=== PATIENT | female | born 1960 | race Caucasian/White ===

== ENCOUNTER 2018-11-23 08:00 | Outpatient (RCR) | payer MEDICAID, SELFPAY ==
--- NOTE | 2018-11-23 15:05 | HP.OTFCE_ITS ---
HP OT Functional Capacity Eval - Task Lift Floor (Occasional 1-33% of Day): 15 Floor (Frequent 34-66% of Day): 5 lbs Floor (Constant 67-100% of Day): negligble Floor PDL: Sedentary-Light Knee (Occasional 1-33% of Day): 10 lbs Knee (Frequent 34-66% of Day): 5 lbs Knee (Constant 67-100% of Day): negligible Knee PDL: Sedentary Waist (Occasional 1-33% of Day): 15 lbs Waist (Frequent 34-66% of Day): 5 lbs Waist (Constant 67-100% of Day): negligible Waist PDL: Sedentary Shoulder (Occasional 1-33% of Day): 10 Shoulder (Frequent 34-66% of Day): negligible Shoulder (Constant 67-100% of Day): negligible Shoulder PDL: Sedentary Overhead (Occasional 1-33% of Day): 5 lbs Overhead (Frequent 34-66% of Day): negligible Overhead (Constant 67-100% of Day): negligible Overhead PDL: Sedentary Comments: Discrepancies noted between dynamometer testing for upper body and lower body strengthening and actual material handling performance. For example, she was able to complete a resistance of bilateral upper extremities with use of dynamometer for proximal shoulder flexion at R 9.2 lbs, and L 11.6 lbs but was unable to complete 5-15 lbs of material handling tasks without significant compensations. Poor body mechanics observed. - Work Activity/Posture Bending: Frequent Ability (34-66% of day) Squatting: Occasional Ability (1-33% of day) Kneeling: Occasional Ability (1-33% of day) Reaching out: Frequent Ability (34-66% of day) Reaching up: Frequent Ability (34-66% of day) Sitting: Frequent Ability (34-66% of day) Walking: Frequent Ability (34-66% of day) Standing: Frequent Ability (34-66% of day) - Reference Duration Sedentary Sedentary Light Light Light Medium Medium Medium Heavy Very Heavy Heavy Occasional (0-33% of day) Frequent (34-66% of day) Constant (67-100% of day) 10 # Negligible Negligible 15 # 8 # Negligible 20 # 10# Negli. 35 # 18 # 7 # 50 # 25 # 10 # 75 # 100 # >100 # 38 # 50 # >50 # 15 # 20 # >20 # - Patient Information Height: 1.61 m Weight:: 106.685 kg Hand Dominance: L hand BP (Medication Use/Usual Values per pt report): Yes - Medical History Medical History Including Restrictions: No medical resitrictions by doctor or provided by pateint. - Diagnoses Diagnoses: Current: Lumbar facet arthropathy and spondylolisthesis of lumbar. PMHx: HTN, atrial fabulation, hypoglycemia, Lumbar facet arthropathy and spondylolisthesis of lumbar (mild), cervical disc syndrome, disc bulge at T12- L1, L2-L3, L3-L4, L4-5, L5-S1. and chronic low back pain. - Symptoms Symptoms: Leelee reports numbness and tingling on left side of body. She reports numbness and tingling in left arm and hand as well as left leg and foot. She re ports daily pain is variable but at times is 'shooting' and 'buring' which typically occurs down her leg from lumabr related pain. - Pain Pain: Noted pain at arrival was 2-3/10 with use of functional pain scale. She noted that she did not take pain medications prior to evaluation as instructed. She did not need pain medications during day one but did bring and take one pill after bending tasks on day 2 evaluation. She noted she regularly uses moist heat and icy hot, Benjay, or Aspercream. She noted pain originates at hip area and follows L3-S1 dermatomes down leg with symptoms of numbness and tingling. She trialed physical therapy per patient report at [facility] but did two sessions and had increase in pain which left her unable to complete any further therapy and per patient report doctor gave her permission to discontinue. She has started pain management program with Dr. Lozano and received first injection on November 03 in in cervical spine C4-C7. She noted that she has further follow up for lumbar injections sometime in December per Pt. report. She is having symptoms of left hand and arm numbness that she reports have been ongoing for years. She noted she has done therapy previously for cervical spine when L UE became ?bad?. She noted it did seem like therapy helped but didn?t take it away. She further noted ?it seemed to take the edge off?. She noted she has3x4 00 mg of gabapentin daily. Pain Assessment: Destiney Pain Questionnaire is a self-report pain assessment to determine a patient?s accurate psychodynamics for accurate pain rating. A score of 30 or high indicates poor psychodynamics and the greater probability of decreased accuracy with accurate pain reporting. Day 1: Pre- Destiney: 29. Post Destiney: 11. Discrepancies noted between pre and post Destiney pain assessment. Indicating that pain as decreased post day 1 of FCE evaluation although verbal report had increased and no mechanical deficits noted. Day 2: Pre- Destiney: 14. Post Destiney: 14. Fear Avoidance Questionnaire (FAQ) is a client self-report assessment for 18-64+ that has shown to be reliable and valid for determining increased fear with moveme nts. A score of 96 or higher indicates increased fear avoidance behaviors. Day 1: FAQ Pre-testin. -fear avoidance beliefs about work: 42. - fear avoidance beliefs about physical activity: 21. FAQ Post testin. -fear avoidance beliefs about work: 42. - fear avoidance beliefs about physical activity: 24. Discrepancies noted between pre and post with increased fear avoidance behaviors. When compared to Destiney further discrepancies noted as she lists decreased pain but increased fear of pain. Inconsistent with pain reporting. Day 2: FAQ Pre-testin. -fear avoidance beliefs about work: 36. - fear avoidance beliefs about physical activity: 24. FAQ Post testin. -fear avoidance beliefs about work: 36. - fear avoidance beliefs about physical activity: 24. Oswestry Neck and Low back questionnaire is a self- report assessment in which patients report their perceived level of disability based on their perceived pain. Day 1. Oswestry : 27/45=60%. Day 2. 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 She recently quit job, 10/08/18, and that was her last day. She reports she did this due to pain. No acknowledgement of being moved to light duty at work by doctor or need to terminate occupation. She noted she has already went to file for disability. 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 She noted she had stopped completing more of heavy lifting tasks due to irregular heartbeat. - Behavioral Behavioral: At arriving day, It took me two doses of medication and sitting with heating pad on my neck and back all day prior to my pain decreasing. She completed very little movement of day 1 testing. Day one testing is background, range of motion measurement, strength testing, and balance assessments. She failed to report what she did at home but noted ?she didn?t do much of anything?. Discrepancies noted between day 1 testing with Destiney and Fear Avoidance Questionnaires noting increased inconsistencies in pain reporting. She was participative in tasks, but increased fear appeared to be observed with client stating ?Oh! That?s really going to make me hurt? and ?I really don?t think I can go back to work with all this pain?. She further noted she recently moved. She did hire house mover helper and sister has been helping unpack but she is also completing unpacking tasks. She is starting physical thrapy again at [facility] for cervical related diagnoses. - ADLS ADLS: Leelee noted that she recently sold house due to health-related issues. She explained she recently moved and is unpacking in the home she is currently renting house. She reports in rental she has three steps to enter through garage. Once in home she reports she has first floor set up. She reports that she has second floor she does not access as bedroom is on first floor. She reports she does have basement which she accesses one time weekly for laundry. She reports 10 stairs to complete laundry and notes she throws laundry down stairs and then leaves it down there until item needed. She is still completing stairs as needed. Notes still unpacking and that her sister, Marta, helps with cooking and some cleaning. Leelee reports she can cook if needed, is still completing all self-care tasks, able to complete tub transfer and showering daily, as well as completing driving (as able). She noted when driving legs do tend go numb and she completes driving within [facility]. - Physical Examination Physical Examination: The purpose of this functional capacity evaluation (FCE) was to determine Leelee's physical ability. This was completed as a two-day and approximately of a total of four-hour assessment. The first day was background information and provocative testing. Second day completed repetitive movement tasks and lifting tasks to determine her physical and material handling abilities. This FCE was performed in order to form setter helper in the determination of Leelee's eligibility to get social security disability. Aerobic limiting factor: 85% of max adjust HR= (220-age)*.85= 138 bpm. Calculated max weight: 60% of weight= 141.12 lbs. Beginning Day 1: Heart rate: 75 bpm. Blood Pressure: 167/99 mmHg (automatic Omron); 158/95 mmHg with forearm-based Balance cuff; 131/90 mmHg manually. ?Leelee noted with not taking pain medication she also did not take blood pressure medications. Blood pressure was monitored throughout session to ensure safety. Beginning Day 2: Heart rate: 70 bpm. Blood pressure: 130/80 mmHg ROM: Completed spine range of motion and measurements are as follows: Cervical spine with goniometer: - flexion: 0-21. - extnesion: 0-13. - rotation: L 0- 20. R 0-29. - Lateral leaning: L 0-24. R 0-13. Lumbar Spine: - flexion: 0- 22. - extension: 0-17. - lateral flexion: R: 0-20. L: 0-14. Inclinometer: Flexion: L1: 22. L 2: 20 Strength: Manual muscle testing completed of the following to determine patient strength needed to complete job ? related tasks: Upper extremity: Shoulder: - Shoulder flexion: R 4 5, L 4-/5. oDynamometer: R 9.2 , L 11.6 lbs. -Shoulder extension: R 4 5, L 4-/5. oDynamometer: R 10.6 , L 9.4 lbs. -Shoulder Adduction: R 4 5, L 4-/5. oDynamometer: R 9.8 , L 12.8 lbs. -Shoulder Abduction: R 4 5, L 4-/5. oDynamometer: R 10.9 , L 16.6 lbs. -Internal Rotation: R 4 5, L 4-/5. oDynamometer: R 12.5 , L 12.5 lbs. -External Rotation: R 4 5, L 4-/5. oDynamometer: R 7.2 , L 9 lbs. Elbow: -Elbow Flexion: R 4 5, L 4-/5. oDynamometer: R 13.9 , L 11.7 lbs. -Elbow Extension: R 4 5, L 4-/5. oDynamometer: R 11.9 , L 9.2 lbs. Wrist: -Wrist Flexion: R 4 5, L 4-/5. -Wrist extension: R 4 5, L 4-/5. noted crepitus in right shoulder with movements. Lower Extremity: Lower Body: Hip flexion: R 4/5 , L 4+/5. oDynamometer: R 12.4 , L 12.8 lbs. Hip abduction: R 4/5 , L 4+/5. oDynamometer: R 11.4 , L 9.8 lbs. Hip Adduction: R 4/5 , L 4+/5. oDynamom eter: R 13 , L 9.2 lbs. Knee extension: R 4/5 , L 4+/5. oDynamometer: R 18.6 , L 14 lbs. Knee flexion: R 4/5 , L 4/5. oDynamometer: R 10.6 , L 10.5 lbs. Ankle dorsiflexion: R 4/5 , L 4/5. oDynamometer: R 13.3 , L 13 lbs. Ankle plantarflexion: R 4/5 , L 4/5. oDynamometer: R 8.6 , L 15.3 lbs. Breaks easily with resistance. Inconsistencies with manual testing as well as dynamometer testing noted as strength of shoulder flexion (deltoid from proximal location) alone was R at 9.2 lbs and L 11.6 lbs but she was unable to lift more than 5 lbs with poor body mechanics. Cues needed to bend elbows to complete task. 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 Auto Body Instructor Strength Average: 41.33 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 Auto Body Instructor Strength Percentile: 62nd Left Vocational Auto Body Instructor Strength Average: 36.66 Left Vocational Auto Body Instructor Strength Percentile: 55th Right Lateral Pinch Average: 11.00 Right Lateral Pinch Percentile: above 25th but below 50th Left Lateral Pinch Average: 11.00 Left Lateral Pinch Percentile: 50th Right Tripod Pinch Average: 6.33 Right Tripod Pinch Percentile: 10th Left Tripod Pinch Average: 8.00 Left Tripod Pinch Percentile: 25th Comments: Five span Vocational Auto Body Instructor Testing: Position 1: R 27 , L 29. Position 2: R 38 ,L 42. Position 3: R 35 , L 41. Position 4: R 35 , L 51. Position 5: R 45 , L 65. Inconsisentencies noted with spanish linguist testing patient shoud show highest performance between 2nd and 3rd positions. Rapid spanish linguist exchange: R 80 ,L 81. R 45, L 64. R 52, L 50. Inconsisentcies noted with spanish linguist testing. Sensation: Sensory Testing: Sensation testing completed on bilateral hands and feet with monofilament touch test. A score of normal on touch test is 2.83 and within normal range with just some discrepancies for light touch is between 3.22-3.61. The higher the number in more complications related to patient?s ability to perceive touch related sensory stimuli. R hand: 2nd 3.22 , 3rd 2.83 , 4th 3.22 , 5th 3.22 , thumb 2.83. L hand: 2nd 3.84 , 3rd 3.61 , 4th 3.22 , 5th 2.83 , thumb 3.22. R foot: Great Toe 3.84 , 2nd 3.22 , 3rd 3.84 , 4th , 5th 3.61. Dorsum. Great Toe 3.61 , 2nd 3.22 , 3rd ,4th 3.22 , 5th 3.61. L foot: Volar. Great Toe 4.56 , 2nd 4.17 , 3rd 3.22 , 4th 3.61 , 5th 3.61. Dorsum. Great Toe 3.84 , 2nd 3,61, 3rd 3.84, 4th 4.31 , 5th 4.08 Fine Motor: Fine motor: Completed the Purdue Pegboard test to further determine the patient?s ability to complete 20-3 step tasks, assess fine motor control and general dexterity needed to complete assembly like work. She is left hand dominant. The results are as follows: Leelee is left hand dominant. Increased symptoms of numbness and tingling on left upper extremity noted by patient. Pt. reports pain at 4/10 with use of functional pain scale. She completed task in standing as requested as need to help manage pain. Completed at table height at 36 inches. Right Hand: 13. -Percentile: 5th. Left Hand: 9. -Percentile: below 1st. Both Hands: 8. -Percentile: below 1st. R+ L+ Both: 30. - percentile: below 1st. Assembly: 5. -percentile: below 1st Balance: Functional reach test is used to determine static balance in patients. A score of 15 is normal and less than 10 increases risk of falling. A score of 6 or less significantly increases a patient?s risk of falling. Bagley 1: 12 inches. Bagley 2: 11.5 inches. Bagley 3: 11.5 inches. Average: 11.5 inches. Blood Pressure: 141/96 mmHg with wrist Omron cuff. Heart rate: 88 bpm. Functional Gait Assessment (FGA) is a dynamic balance test to determine vestibular functioning and general dynamic balance ability of patient 18-65+. This assessment can be used with clients of various backgrounds to determine functional dynamic balance needed to complete every day work related tasks. 1.Gait Level Surface:2. 2.Change in Gait Speed: 1. 3.Gait with horizontal head turns:1. 4.Gait with vertical head turns:1. 5.Gait and pivot turn:3. 6.Step over obstacle: 1. 7.Gait with narrow base of support: 2. 8.Gait with eyes closed: 1. 9.Ambulating Backwards: 1. 10.Steps: 1. Total Score: 14/maximum score 30. Significantly below peer groupbut does have past medical history of positional vertigo per patient report. She reports recieving treatment multiple times in outpatient physical therapy. - Non Material Handling Activities Bending: Heart rate startin bpm. 3x, 10x in 70 seconds; Patient noted muscle spasm and needed 30 seconds standing break prior to continuing with 10x faster; and then , 10 x faster in 27 seconds. Completed with equal weightbearing into bilateral lower extremities. Increase in thoracic spine flexion and noted as compensation. She was able to complete full bend with increase in speed for faster set. Fair body mechanics observed as some decreased alignment of spine noted. No increase in heart rate observed to support increase in pain as report by client. Heart rate: 92 bpm. Shane. Pain 5/10 Squatting: Heart rate start: 92 bpm. 3x, 10 x in 44 seconds, 5x faster 20 seconds. Completed 25% of full squat with equal weightbearing noted of bilateral lower extremities. She noted increase in pain in left knee but no increase in heart rate or pain behaviors observed. Fair body mechanics. Heart rate: 88 bpm. Shane. Pain: 5 Kneeling: Heart rate: 91 bpm. 3x at 25% of full kneel. Increased fear noted by patient of completing position. ?I don?t want my pain over a 5/10 pain?. Pain at 5/10. Needed seated break for 4 minutes at completion. Mechanical compensations observed of need for external support of mat table and left hand to thigh. Would avoid completing this movement regularly due to increased mechanical changes observed. Increase in heart rate noted. Slight grimace observed with patient completion of movements. Increase in heart rate is also to be due to exertion and fear of increasing pain that solely relatively to movement. Heart rate 105 bpm. Shane. Pain: 5/10 Reaching out/up: Beginning heart rate: 79 bpm. Completed from standing position: Reaching out: 3x, 10x in 20 seconds, 10x faster in 23s. Completed with equal weightbearing into bilateral lower extremities. She completed with good body mechanics and spinal alignment. No mechanical compensations noted. She did not muscle fatigue but no increase in pain. Pain: 5/10 in lumbar and left leg. From standing position: Reaching up: Heart rate: 84 bpm. 3x, 10x in 27 seconds, 10x faster in about 25 seconds. Completed with equal weightbearing into bilateral lower extremities. She completed with good body mechanics and spinal alignment. No mechanical change but some compensations of increased ocular tracking to ceiling causing increased cervical extension. She did not muscle fatigue but no increase in pain. Pain: 5/10. Heart rate: 91 bpm. Heart rate: 78 bpm after 10 second standing break. Walking: Blood Pressure: 135/84 mmHg. Heart rate: 80 bpm. Completed walking 1,120 feet around facility no including the additional amount of walking from physical therapy gym-based area to the occupational therapy area as well as from parking lot to designated therapy spots. She completed without use of assistive device and was able to complete 10 minutes of walking with a onetime standing break of 30 seconds. Exhibited antalgic gait to bilateral sides. No shortness of breath observed. Increase in mechanical changes observed with task progression. Needed to take pain medication after task. Increase in heart rate observed but this is likely due to increase in exertion. Heart rate: 96 bpm. Blood pressure: 139/90 mmHg Standing: Able to complete static and dynamic standing tasks for 35 minutes. She was able to complete equal weightbearing into bilateral lower extremity weight bearing as needed with weight shift as appropriate. Pain consistent at 5/10 pain. Completed an additional twenty minutes of standing later in session. Sitting: Completed 30 minutes of sitting tasks with weight shift as needed to complete tasks. She is able to complete frequent sitting related tasks. Climbing Stairs: Blood pressure prior to stairs: 143/93 mmHg. Heart rate prior to stairs: 94 bpm. Able to complete one set of 10 stairs with need for two step gait with ascension. She additionally needed to use left sided handrail with descension. Antalgic gait noted. She is able to complete 10 stairs with in home to basement. Post blood pressure: 137/94 mmHg. Heart rate: 97 bpm - Dynamic Occasional Lifting Capacity Floor Lift: Occasional: 15 lbs. Frequent: 5 lbs. Poor body mechanics. Lifting with narrow base of support and straight arms. Pain behaviors noted of wincing and grimace and need to completed massage back during standing break prior to continuing. Mechanical deficits noted of increased thoracic spine flexion and cervical extension. Increased compensations noted to complete task. Partici pative but noted all tasks very 'heavy'. Dynamometer testing completed shows adequate ability to complete listing tasks with allotted amount. Some discrepancies noted. Shane. Pain: 5/10 Knee Lift: Heart rate: 87 bpm. Occasional: 10 lbs. Frequent: 5 lbs. . Need for seated break at completion of task for 4-minute seated break prior to continuing. Completed with poor body mechanics. Increased compensations noted to complete task. Participative but noted all tasks very 'heavy'. Heart rate: 94 bpm. Shane Waist Lift: Starting heart rate 75 bpm. Occasional: 15 lbs. Frequent: 5 lbs. Poor body mechanics noted of decreased spinal alignment. Mechanical changes observed with twist movement at thoracic spine to place box to table top. C ompleted with equal weightbearing int o lower extremity. Some pain behaviors observed of facial expressions made but no changes observed in heart rate to be abnormal. Heart rate: 80 bpm. Shane. Pain: 5 /10 Shoulder Lift: Beginning heart rate: 81 bpm. Occasional: 10 lbs. Frequent: Negligible. Completed with poor body mechanics. Verbal cues needed to complete bending upper extremity to manipulate tasks. She attempted straight arm and minimal bend in knees. Completed with equal weightbearing into bilateral lower extremity. Some facial grimace noted but no increase in pain. She noted ?I don?t plan on letting my pain get above a 5/10?. She reports having recently moved and used movers to completed tasks but is still unpacking with sister. Heart rate: 92 bpm. Shane. Pain: 5 /10 Overhead Lift: Heart rate: 80 bpm. Occasional: 5 lbs. Frequent: negligible. Completed with poor body mechanics and increased compensations noted through mechanical changes. Discrepancies noted between performance and dynamometer testing and inconsistencies observed. Heart rate: 97 bpm. Shane. Pain: 5 /10 Carrying: Heart rate: 97 bpm. 10 lbs for 20 feet with decreased speed and antalgic gait. Mechanical deficits noted. Inconsistencies noted with pain and performance. No pain behaviors observed and no increase in heart rate observed. Shane: Heart rate: 94 bpm Comments: Ending diagnostics are as follows: Blood pressure: 129/92. Heartrate: 74 bpm
--- NOTE | 2018-11-23 15:05 | HP.OTFCE.D ---
FCE D/C Summary - Discharge CALI GUERRA was seen for a one time visit for an FCE on 11/22/18 and is discharged.
--- NOTE | 2018-11-25 12:24 | HP.OTFCE_ITS ---
HP OT Functional Capacity Eval - Task Lift Floor (Occasional 1-33% of Day): 15 Floor (Frequent 34-66% of Day): 5 lbs Floor (Constant 67-100% of Day): negligble Floor PDL: Sedentary-Light Knee (Occasional 1-33% of Day): 10 lbs Knee (Frequent 34-66% of Day): 5 lbs Knee (Constant 67-100% of Day): negligible Knee PDL: Sedentary Waist (Occasional 1-33% of Day): 15 lbs Waist (Frequent 34-66% of Day): 5 lbs Waist (Constant 67-100% of Day): negligible Waist PDL: Sedentary Shoulder (Occasional 1-33% of Day): 10 Shoulder (Frequent 34-66% of Day): negligible Shoulder (Constant 67-100% of Day): negligible Shoulder PDL: Sedentary Overhead (Occasional 1-33% of Day): 5 lbs Overhead (Frequent 34-66% of Day): negligible Overhead (Constant 67-100% of Day): negligible Overhead PDL: Sedentary Comments: Discrepancies noted between dynamometer testing for upper body and lower body strength testing and actual material handling performance. For example, she was able to complete a resistance of bilateral upper extremities with use of dynamometer for proximal shoulder flexion at R 9.2 lbs, and L 11.6 lbs but was unable to complete 5-15 lbs of material handling tasks without significant compensations and poor body mechanics observed. - Work Activity/Posture Bending: Frequent Ability (34-66% of day) Squatting: Occasional Ability (1-33% of day) Kneeling: Occasional Ability (1-33% of day) Reaching out: Frequent Ability (34-66% of day) Reaching up: Frequent Ability (34-66% of day) Sitting: Frequent Ability (34-66% of day) Walking: Frequent Ability (34-66% of day) Standing: Frequent Ability (34-66% of day) - Reference Duration Sedentary Sedentary Light Light Light Medium Medium Medium Heavy Very Heavy Heavy Occasional (0-33% of day) Frequent (34-66% of day) Constant (67-100% of day) 10 # Negligible Negligible 15 # 8 # Negligible 20 # 10# Negli. 35 # 18 # 7 # 50 # 25 # 10 # 75 # 100 # >100 # 38 # 50 # >50 # 15 # 20 # >20 # - Patient Information Height: 1.61 m Weight:: 106.685 kg Hand Dominance: L hand BP (Medication Use/Usual Values per pt report): Yes - Medical History Medical History Including Restrictions: No medical resitrictions by doctor or provided by pateint. - Diagnoses Diagnoses: Current: Lumbar facet arthropathy and spondylolisthesis of lumbar. PMHx: HTN, atrial fabulation, hypoglycemia, Lumbar facet arthropathy and spondylolisthesis of lumbar (mild), cervical disc syndrome, disc bulge at T12- L1, L2-L3, L3-L4, L4-5, L5-S1. and chronic low back pain. - Symptoms Symptoms: Leelee reports numbness and tingling on left side of body. She reports numbness and tingling in left arm and hand as well as left leg and foot. Leelee reports daily pain is variable but at times is 'shooting' and 'burning' which typically occurs down her leg from lumbar related pain. - Pain Pain: Noted pain at arrival was 2-3/10 with use of functional pain scale. She noted that she did not take pain medications prior to evaluation as instructed. She did not need pain medications during day one but did bring and take one pill after bending tasks on day 2 evaluation. She noted she regularly uses moist heat and icy hot, Benjay, or Aspercream. She noted pain originates at hip area and follows L3-S1 dermatomes down leg with symptoms of numbness and tingling. She trialed physical therapy per patient report at [facility] but did two sessions and had increase in pain which left her unable to complete any further therapy and per patient report doctor gave her permission to discontinue. She has started pain management program with Dr. Lozano and received first injection on November 03 in in cervical spine C4-C7. She noted that she has further follow up for lumbar injections sometime in December per Pt. report. She is having symptoms of left hand and arm numbness that she reports have been on going for years. She noted she has done therapy previously for cervical spine when L UE became ?bad?. She noted it did seem like therapy helped but didn?t take it away. She further noted ?it seemed to take the edge off?. She noted she has3x4 00 mg of gabapentin daily. Pain Assessment: Destiney Pain Questionnaire is a self-report pain assessment to determine a patient?s accurate psychodynamics for accurate pain rating. A score of 30 or high indicates poor psychodynamics and the greater probability of decreased accuracy with accurate pain reporting. Day 1: Pre- Destiney: 29. Post Destiney: 11. Discrepancies and inconsistencies noted between pre and post Destiney pain assessment. Results of Destiney report indicated Leelee?s self report of pain had decreased post day 1 of FCE evaluation although verbal report had increased, and no mechanical deficits noted. Day 2: Pre- Destiney: 14. Post Destiney: 14. Fear Avoidance Questionnaire (FAQ) is a client self-report assessment for 18-64+ that has shown to be reliable and valid for determining increased fear with movements. A score of 96 or higher indicates increased fear avoidance behaviors. Day 1: FAQ Pre- testin. -fear avoidance beliefs about work: 42. - fear avoidance beliefs about physical activity: 21. FAQ Post testin. -fear avoidance beliefs about work: 42. - fear avoidance beliefs about physical activity: 24. Discrepancies noted between pre and post with increased fear avoidance behaviors. When compared to Destiney further discrepancies noted as she lists decreased pain but increased fear of pain. Inconsistent with pain reporting. Day 2: FAQ Pre-testin. -fear avoidance beliefs about work: 36. - fear avoidance beliefs about physical activity: 24. FAQ Post testin. -fear avoidance beliefs about work: 36. - fear avoidance beliefs about physical activity: 24. Oswestry Neck and Low back questionnaire is a self-report assessment in which patients report their perceived level of disability based on their perceived pain. Day 1. Oswestry : 27/45=60%. Day 2. 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 She recently quit job, 10/08/18, and that was her last day. She reports she did this due to pain. No acknowledgement of being moved to light duty at work by doctor or need to terminate occupation. She noted she has already went to file for disability. 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 She noted she had st opped completing more of heavy lifting tasks due to irregular heartbeat. - Behavioral Behavioral: At arriving day, It took me two doses of medication and sitting with heating pad on my neck and back all day prior to my pain decreasing. She completed very little movement of day 1 testing. Day one testing is background, range of motion measurement, strength testing, and balance assessments. She failed to report what she did at home but noted ?she didn?t do much of anything?. Discrepancies noted between day 1 testing with Destiney and Fear Avoidance Questionnaires noting increased inconsistencies in pain reporting. She was participative in tasks, but increased fear appeared to be observed with client stating ?Oh! That?s really going to make me hurt? and ?I really don?t think I can go back to work with all this pain?. She further noted she recently moved. She did hire movers but she reports that she and her sister have been unpacking new home. Reports needing to move due to expensive of medical bills while not working and difficulty upkeeping yard. She is starting physical thrapy again at [facility] for cervical related diagnoses. - ADLS ADLS: Leelee noted that she recently sold house due to health-related issues. She explained she recently moved and is unpacking in the home she is currently renting house. She reports in rental she has three steps to enter through garage. Once in home she reports she has first floor set up. She reports that she has second floor she does not access as bedroom is on first floor. She reports she does have basement which she accesses one time weekly for laundry. She reports 10 stairs to complete laundry and notes she throws laundry down stairs and then leaves it down there until item needed. She is still completing stairs as needed. Notes still unpacking and that her sister, Marta, helps with cooking and some cleaning. Leelee reports she can cook if needed, is still completing all self-care tasks, able to complete tub transfer and showering daily, as well as completing driving (as able). She noted when driving legs do tend go numb and she completes driving within [facility]. - Physical Examination Physical Examination: The purpose of this functional capacity evaluation (FCE) was to determine Leelee's physical ability. This was completed as a two-day evaluation, with completion of two hours each day. The first day was background information and provocative testing. Second day Leelee completed repetitive movement tasks and lifting tasks to determine her physical performance and material handling abilities. This FCE was performed in order to form builder helper in the determination of Leelee's eligibility to get social security disability. Inconsistencies noted throughout evaluation and been examined in the designated areas. Aerobic limiting factor: 85% of max adjust HR= (220-age)*.85= 138 bpm. Calculated max weight: 60% of weight= 141.12 lbs. Beginning Day 1: Heart rate: 75 bpm. Blood Pressure: 167/99 mmHg (automatic Omron); 158/95 mmHg with forearm-based Balance cuff; 131/90 mmHg manually. ?Leelee noted with not taking pain medication she also did not take blood pressure medications. Blood pressure was monitored throughout session to ensure safety. Beginning Day 2: Heart rate: 70 bpm. Blood pressure: 130/80 mmHg ROM: Completed spine range of motion and measurements are as follows: Cervical spine with goniometer: - flexion: 0-21. - extnesion: 0-13. - rotation: L 0- 20. R 0-29. - Lateral leaning: L 0-24. R 0-13. Lumbar Spine: - flexion: 0- 22. - extension: 0-17. - lateral flexion: R: 0-20. L: 0-14. Inclinometer: Flexion: L1: 22. L 2: 20 Strength: Manual muscle testing completed of the following to determine patient strength needed to complete job ? related tasks: All dynamometer testing completed at promxial testing or short axis sites. Upper extremity: Shoulder: -Shoulder flexion: R 4 5, L 4-/5. oDynamometer: R 9.2 , L 11.6 lbs. -Shoulder extension: R 4 5, L 4-/5. oDynamometer: R 10.6 , L 9.4 lbs. -Shoulder Adduction: R 4 5, L 4-/5. oDynamometer: R 9.8 , L 12.8 lbs. -Shoulder Abduction: R 4 5, L 4-/5. oDynamometer: R 10.9 , L 16.6 lbs. -Internal Rotation: R 4 5, L 4-/5. oDynamometer: R 12.5 , L 12.5 lbs. -External Rotation: R 4 5, L 4-/5. oDynamometer: R 7.2 , L 9 lbs. Elbow: -Elbow Flexion: R 4 5, L 4-/5. oDynamometer: R 13.9 , L 11.7 lbs. -Elbow Extension: R 4 5, L 4-/5. oDynamometer: R 11.9 , L 9.2 lbs. Wrist: -Wrist Flexion: R 4 5, L 4-/5. -Wrist extension: R 4 5, L 4-/5. noted crepitus in right shoulder with movements. Lower Extremity: Lower Body: Hip flexion: R 4/5 , L 4+/5. oDynamometer: R 12.4 , L 12.8 lbs. Hip abduction: R 4/5 , L 4+/5. oDynamometer: R 11.4 , L 9.8 lbs. Hip Adduction: R 4/5 , L 4+/5. oDynamometer: R 13 , L 9.2 lbs. Knee extension: R 4/5 , L 4+/5. oDynamometer: R 18.6 , L 14 lbs. Knee flexion: R 4/5 , L 4/5. oDynamometer: R 10.6 , L 10.5 lbs. Ankle dorsiflexion: R 4/5 , L 4/5. oDynamometer: R 13.3 , L 13 lbs. Ankle plantarflexion: R 4/5 , L 4/5. oDynamometer: R 8.6 , L 15.3 lbs. Breaks easily with resistance. Inconsistencies with manual testing as well as dynamometer testing noted as strength of shoulder flexion (deltoid from proximal location) alone was R at 9.2 lbs and L 11.6 lbs but she was unable to lift more than 5 lbs with poor body mechanics. Cues needed to bend elbows to complete task. Right Lift Operator Strength Average: 41.33 Right Lift Operator Strength Percentile: 62nd Left Lift Operator Strength Average: 36.66 Left Lift Operator Strength Percentile: 55th Right Lateral Pinch Average: 11.00 Right Lateral Pinch Percentile: above 25th but below 50th Left Lateral Pinch Average: 11.00 Left Lateral Pinch Percentile: 50th Right Tripod Pinch Average: 6.33 Right Tripod Pinch Percentile: 10th Left Tripod Pinch Average: 8.00 Left Tripod Pinch Percentile: 25th Comments: Five span Lift Operator Testing: Position 1: R 27 , L 29. Position 2: R 38 ,L 42. Position 3: R 35 , L 41. Position 4: R 35 , L 51. Position 5: R 45 , L 65. Coefficient of variation: R .18 or 18%, L 0.29 or 29%. Coefficient of variation above 15% is and inconsistent test. Inconsistencies noted with utility division project manager testing patient should show highest performance between 2nd and 3rd positions as this is power grasp. She shows increased utility division project manager in position 5 which is a hook grasp and weaker grasp to position 2 and 3. Rapid utility division project manager exchange: R 80 ,L 81. R 45, L 64. R 52, L 50. Coefficient of variation: R 31 %, L 23 %. Coefficient of variation above 15% is and inconsistent test. Inconsistencies noted with utility division project manager testing. Sensation: Sensory Testing: Sensation testing completed on bilateral hands and feet with monofilament touch test. A score of normal on touch test is 2.83 and within normal range with just some discrepancies for light touch is between 3.22-3.61. The higher the number in more complications related to patient?s ab ility to perceive touch related sensory stimuli. R hand: 2nd 3.22 , 3rd 2.83 , 4th 3.22 , 5th 3.22 , thumb 2.83. L hand: 2nd 3.84 , 3rd 3.61 , 4th 3.22 , 5th 2.83 , thumb 3.22. R foot: Great Toe 3.84 , 2nd 3.22 , 3rd 3.84 , 4th , 5th 3.61. Dorsum. Great Toe 3.61 , 2nd 3.22 , 3rd ,4th 3.22 , 5th 3.61. L foot: Volar. Great Toe 4.56 , 2nd 4.17 , 3rd 3.22 , 4th 3.61 , 5th 3.61. Dorsum. Great Toe 3.84 , 2nd 3,61, 3rd 3.84, 4th 4.31 , 5th 4.08 Fine Motor: Fine motor: Completed the Purdue Pegboard test to further determine the patient?s ability to complete 20-3 step tasks, assess fine motor control and general dexterity needed to complete assembly like work. She is left hand dominant. The results are as follows: Leelee is left hand dominant. Increased symptoms of numbness and tingling on left upper extremity noted by patient. Pt. reports pain at 4/10 with use of functional pain scale. She completed task in standing as requested as need to help manage pain. Completed at table height at 36 inches. Right Hand: 13. -Percentile: 5th. Left Hand: 9. -Percentile: below 1st. Both Hands: 8. -Percentile: below 1st. R+ L+ Both: 30. -pe rcentile: below 1st. Assembly: 5. -percentile: below 1st Balance: Functional reach test is used to determine static balance in patients. A score of 15 is normal and less than 10 increases risk of falling. A score of 6 or less significantly increases a patient?s risk of falling. [place] 1: 12 inches. [place] 2: 11.5 inches. [place] 3: 11.5 inches. Average: 11.5 inches. Blood Pressure: 141/96 mmHg with wrist Omron cuff. Heart rate: 88 bpm. Functional Gait Assessment (FGA) is a dynamic balance test to determine vestibular functioning and general dynamic balance ability of patient 18-65+. This assessment can be used with clients of various backgrounds to determine functional dynamic balance needed to complete every day work related tasks. 1.Gait Level Surface:2. 2.Change in Gait Speed: 1. 3.Gait with horizontal head turns:1. 4.Gait with vertical head turns:1. 5.Gait and pivot turn:3. 6.Step over obstacle: 1. 7.Gait with narrow base of support: 2. 8.Gait with eyes closed: 1. 9.Ambulating Backwards: 1. 10.Steps: 1. Total Score: 14/maximum score 30. Significantly below peer group but does have past medical history of positional vertigo per patient report. This was not reported by doctor. She reports receiving treatment multiple times in outpatient physical therapy. - Non Material Handling Activities Bending: Heart rate startin bpm. 3x, 10x in 70 seconds; Patient noted muscle spasm and needed 30 seconds standing break prior to continuing with 10x faster; and then, 10 x faster in 27 seconds. Completed with equal weightbearing into bilateral lower extremities. Increase in thoracic spine flexion noted as compensation. She was able to complete full bend with increase in speed recorded for faster set. Fair body mechanics observed as some decreased alignment of spine noted. No increase in heart rate observed to support increase in pain as report by client. Heart rate: 92 bpm. Shane Rate of Perceived Exertion Scale: 11. - Shane: [id number]= 110 bpm. Pain 5/10 Squatting: Heart rate start: 92 bpm. 3x, 10 x in 44 seconds, 5x faster 20 seconds. Completed 25% of full squat with equal weightbearing noted of bilateral lower extremities. She noted increase in pain in left knee but no increase in heart rate or pain behaviors observed. Fair body mechanics. Heart rate: 88 bpm. Shane Rate of Perceived Exertion Scale: 11. - Shane: [email or web address]= 110 bpm. Pain: 5 Kneeling: Heart rate: 91 bpm. 3x at 25% of full kneel. Increased fear noted by patient of completing position. ?I don?t want my pain over a 5/10 pain?. Pain at 5/10 reported by patient. Needed seated break for 4 minutes at completion. Mechanical compensations observed of need for external support of mat table and left hand to thigh. Would avoid completing this movement regularly due to increased mechanical changes observed. Increase in heart rate noted. Slight grimace observed with patient completion of movements. Increase in heart rate is also to be due to exertion and fear of increasing pain that solely relatively to movement. Heart rate 105 bpm. Shane Rate of Perceived Exertion Scale: 12. - Shane: [id number]= 120 bpm. Pain: 5/10 Reaching out/up: Beginning heart rate: 79 bpm. Completed from standing position: Reaching out: 3x, 10x in 20 seconds, 10x faster in 23s. Completed with equal weightbearing into bilateral lower extremities. She completed with good body mechanics and spinal alignment. No mechanical compensations noted. She did not muscle fatigue but no increase in pain. Pain: 5/10 in lumbar and left leg. From standing position: Reaching up: Heart rate: 84 bpm. 3x, 10x in 27 seconds, 10x faster in about 25 seconds. Completed with equal weightbearing into bilateral lower extremities. She completed with good body mechanics and spinal alignment. No mechanical change but some compensations of increased ocular tracking to ceiling causing increased cervical extension. She did not muscle fatigue but no increase in pain. Pain: 5/10. Shane Rate of Perceived Exertion Scale: 12. - Shane: [id number]= 120 bpm. Heart rate: 91 bpm. Heart rate: 78 bpm after 10 second standing break. Walking: Blood Pressure: 135/84 mmHg. Heart rate: 80 bpm. Completed walking 1,120 feet for 10 minutes around facility. This measurement does not include the additional amount of walking from physical therapy gym-based area to the occupational therapy area as well as from parking lot to designated therapy spots. She completed without use of assistive device and was able to complete 10 minutes of walking with a onetime standing break of 30 seconds. Exhibited antalgic gait to bilateral sides. No shortness of breath observed. Increase in mechanical changes observed with task progression. Needed to take pain medication after task but able to stay in standing position for break. Increase in heart rate observed but this is likely due to increase in exertion. Heart rate: 96 bpm. Blood pressure: 139/90 mmHg. Shane Rate of Perceived Exertion Scale: 12. - Shane: [id number]= 120 bpm Standing: Able to complete static and dynamic standing tasks for 35 minutes. She was able to complete equal weightbearing into bilateral lower extremity weight bearing as needed with weight shift as appropriate. Pain consistent at 5/10 pain. Completed an additional twenty minutes of standing later in session. Sitting: Completed 30 minutes of sitting tasks with weight shift as needed to complete tasks. She is able to complete frequent sitting related tasks. Climbing Stairs: Blood pressure prior to stairs: 143/93 mmHg. Heart rate prior to stairs: 94 bpm. Able to complete one set of 10 stairs with need for two step gait with ascension. She additionally needed to use left sided handrail with descension. Antalgic gait noted. She is able to complete 10 stairs with in home to basement. Post blood pressure: 137/94 mmHg. Heart rate: 97 bpm. Shane Rate of Perceived Exertion Scale: 12. - Shane: [id number]= 120 bpm - Dynamic Occasional Lifting Capacity Floor Lift: Occasional: 15 lbs. Frequent: 5 lbs. Poor body mechanics. Lifting with narrow base of support and straight arms. Pain behaviors noted of wincing and grimace and client observed to need to complete self-massage of low back during standing break prior to continuing. Mechanical deficits noted of increased thoracic spine flexion and cervical extension. Increased compensations noted to complete task. Participative but noted all tasks very 'heavy'. Dynamometer testing completed shows adequate ability to complete lifting tasks with allotted weight amount. Inconsistencies and discrepancies noted. Shane. Shane Rate of Perceived Exertion Scale: 13. - Shane: [email or web address]= 130 bpm. Pain: 5/10 Knee Lift: Heart rate: 87 bpm. Occasional: 10 lbs. Frequent: 5 lbs. . Need for seated break at completion of task for 4-minute seated break prior to continuing. Completed with poor body mechanics. Increased compensations and mechanical changes noted to complete task. Participative but noted all tasks very 'heavy'. Inconsistencies noted between dynamometer testing of upper extremity and actual performance. Actual Heart rate: 94 bpm. Shane Rate of Perceived Exertion Scale: 13. - Shane: [email or web address]= 130 bpm. - [id number] bpm=36 Waist Lift: Starting heart rate 75 bpm. Occasional: 15 lbs. Frequent: 5 lbs. Poor body mechanics noted of decreased spinal alignment. Mechanical changes observed with twist movement at thoracic spine to place box to table top. Completed with equal weightbearing into lower extremity. Some pain behaviors observed of facial expressions made but no changes observed in heart rate to be abnormal. Actual Heart rate: 80 bpm. Shane Rate of Perceived Exertion Scale: 13. - Shane: [id number]= 130 bpm. Pain: 5 /10 Shoulder Lift: Beginning heart rate: 81 bpm. Occasional: 10 lbs. Frequent: Negligible. Completed with poor body mechanics. Verbal cues needed to complete bending upper extremity to manipulate tasks. She attempted straight arm lift and minimal bend in knees. Completed with equal weightbearing into bilateral lower extremity. Some facial grimace noted but no increase in pain. She noted ?I don?t plan on letting my pain get above a 5/10?. She reports having recently moved and used movers to completed tasks but is still unpacking with sister. Inconsistencies noted between dynamometer testing of upper extremity and actual performance. Actual Heart rate: 92 bpm. Shnae Rate of Perceived Exertion Scale: 13. - Shane: [id number]= 130 bpm. Pain: 5 /10 Overhead Lift: Heart rate: 80 bpm. Occasional: 5 lbs. Frequent: negligible. Completed with poor body mechanics and increased compensations noted through mechanical changes during task. No increase in heart rate observed to indicated increase pain or exertion. Inconsistencies noted between dynamometer testing of upper extremity and actual performance. Actual Heart rate: 97 bpm. Shane Rate of Perceived Exertion Scale: 13. - Shane: [id number]= 130 bpm. Pain: 5 /10 Carrying: Heart rate: 97 bpm. 10 lbs for 20 feet with decreased speed and antalgic gait. Mechanical deficits noted. Inconsistencies noted with pain, performance, and dynamometer testing. No pain behaviors observed and no increase in heart rate observed. Shane Rate of Perceived Exertion Scale: 13. - Shane: [id number]= 130 bpm. Actual Heart rate: 94 bpm Comments: Ending diagnostics are as follows: Blood pressure: 129/92. Heartrate: 74 bpm
== END 2018-11-23 19:00 | disposition home or self-care (01) ==
LOC: OT 08:00
PROVIDERS: Family Provider Family Medicine; PCP Family Medicine; Referring Provider Physician Assistant; Visit Provider Physician Assistant
DX: M46.96 Unspecified inflammatory spondylopathy, lumbar region (principal); M43.13 Spondylolisthesis, cervicothoracic region
CPT/HCPCS: 97750

== ENCOUNTER 2019-01-31 13:21 | Outpatient (RCR) | payer MEDICAID, SELFPAY | END 2019-02-08 23:59 | LOC: NS 13:21 | PROVIDERS: Family Provider Family Medicine; PCP Family Medicine; Visit Provider Nurse Practitioner Family | DX: E66.9 Obesity, unspecified (principal); Z68.41 Body mass index [BMI] 40.0-44.9, adult; Z71.3 Dietary counseling and surveillance | CPT/HCPCS: 97802 ==

== ENCOUNTER 2019-02-14 09:54 | Outpatient (RCR) | payer MEDICAID, SELFPAY | END 2019-03-11 23:59 | LOC: NS 09:54 | PROVIDERS: Family Provider Family Medicine; PCP Family Medicine; Visit Provider Nurse Practitioner Family | DX: E66.9 Obesity, unspecified (principal); Z68.41 Body mass index [BMI] 40.0-44.9, adult; Z71.3 Dietary counseling and surveillance | CPT/HCPCS: 97803 ==

== ENCOUNTER 2019-03-01 09:30 | Outpatient (RCR) | payer MEDICAID, SELFPAY ==
--- NOTE | 2018-11-26 13:15 | HP.PTEVAL_ITS ---
Patient's Visit Information CALI GUERRA is a 57 year old F referred to Physical Therapy by JAMIE Hu with a diagnosis of CERVICAL RADICULOPATHY,SPONDYLOSIS,CERVICAL SPINAL STENOSIS. Date of Evaluation: 11/26/18 Physical Therapist: Armando Izaguirre PT, Cert MDT, OCS - Visit Plan Frequency: 2x /Week Duration: 4 Weeks Plan: CERVICAL/POSTURAL EX'S,STRENGTHENING,MODALITIES FOR PAIN RELEIVE - Subjective Findings: This 57 y/o female presents to physical therapy with cervical radiculopathy. Patient has cervical pain and symptoms left arm 7 years ago. Family MD recommended pain management ,tried epidural injections but didnt help. Patient has lumbar pain with radicular symptoms in legs. Patient has tried PT many years ago and lumbar which made symptoms worse. Patient seen MD recommended gabebetin.Patient location pain cervical region with radiating symptoms left arm . Patient has parathesia/tingling. Patient aggravating factors cervical rotation,looking up/down ,lifting,and affects ADL'S and job demands.Patient symptoms affect sleeping. Patient has OLGUIN daily,denies nausea/tinnitus. Patient has h/o vertigo.Patient had FCE.Patient symptoms affect QOL and ADL'S. VOCATION: unemployed. SOCIAL: - Pain Bilateral Neck Pain Intensity (Out of 10): 3 Pain Intensity Range: 10 Left Shoulder Pain Intensity (Out of 10): 3 Pain Intensity Range: 10 Comment: shoulder -hand - Objective POSTURE: mild foward posture. NEURO: c/o parathesia/tingling left arm ,reflexes C5-6-7 2/3. PALAPTION: UT/levator /paraspinals. 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 AROM: BUE WFL. MMT: grossly 4-/5 wrist,biceps/triceps,deltoid 3+/5. CERVICAL ROM: flexion min loss,rotation/lateral flexion ,extension mod loss - Special Tests C/S Radiculapathy - Left Upper limb tension test: Negative C/S Radiculapathy - Right Upper limb tension test: Negative C/S Radiculapathy - Left Spurlings: Positive C/S Radiculapathy - Right Spurlings: Positive C/S Radiculapathy - Left Cervical distraction: Negative C/S Radiculapathy - Right Cervical distraction: Negative C/S Radiculapathy - Left Relief test: Negative C/S Radiculapathy - Right Relief test: Negative Sharp Laron: Negative Vertebral Artery Test: Negative Alar Ligament Test: Negative - Goals Goal 1:: Independant with HEP Goal Time Frame: 4-6 Weeks Goal 2:: Improve posture for ADL'S Goal Time Frame: 4-6 Weeks Goal 3:: Increase strength left UE 4-/5 to improve function and ADL'S Goal Time Frame: 4-6 Weeks Goal 4:: Patient to improve cervical ROM for function of recovery Goal Time Frame: 4-6 Weeks Goal 5:: Patient to decrease pain cervical and radicular symptoms by 40-50% to improve function Goal Time Frame: 4-6 Weeks Goal 6:: Patient to improve JOSE LUIS neck score by 5 points to improve QOL. Goal Time Frame: 4-6 Weeks - Rehabilitation Potential Physical Therapy Diagnosis: This patient has cervical radiculopathy left arm with possible derrangement /stenosis with weakness,poor cervical ROM,strength deficits impairs function thus benifit from skilled PT. Rehabilitation Potential: Fair - Anticipated Interventions Patient/Client Instruction: Educate patient on: Condition For the Purpose of:: To decrease pain, To improve muscle performance and motor function, To increase tolerance to activity/condition/position, To improve ability of physical actions for home/community/work/leisure, To improve health of tissue, To decrease soft tissue restriction, To increase flexibility/ROM, To reduce risk of recurrence, To improve ability to perform tasks related to life management Therapeutic Exercise to Include: Strength training, Postural training, Flexibilty training, Active ROM For the Purpose of:: To decrease pain, To increase ROM, To improve muscle performance and motor function, To improve ability to perform ADL's, To increase tolerance to activity/condition/position, To improve ability of physical actions for home/community/work/leisure, To improve health of tissue, To decrease soft tissue restriction, To increase flexibility/ROM, To improve ability to perform tasks related to life management TENS: Yes IF ES: Yes Cryotherapy (ice pack, ice massage): Yes Thermo therapy (hot pack): Yes Ultrasound (thermal/non thermal): Yes For the Purpose of:: To decrease pain, To increase ROM, To improve nutrient delivery to tissue, To increase oxygenation perfusion, To improve health of tissue, To decrease soft tissue restriction Thank you for the opportunity to evaluate your patient. For Medicare and Medicare HMO plans, please review the plan of care and approve it. It will need to be FAXED BACK to us at [phone] for Medicare purposes. For Medicare only, by signing this I certify the plan of care. Please let me know if there are questions or concerns regarding this plan of care. Physician Signature: Date:
--- NOTE | 2018-12-16 10:57 | HP.PTDCSUM ---
HP - PT D/C Summary It has been my pleasure to treat CALI GUERRA under orders from JAMIE Hu, for the diagnosis of CERVICAL RADICULOPATHY,SPONDYLOSIS,CERVICAL SPINAL STENOSIS for a total of 7 visit(s). Discharge Date: 12/16/18 Please see the following information for a summary of their discharge status. - Subjective Subjective: Patient reports no improvement. Seen DR plan for MRI. - Pain Bilateral Neck Pain Intensity (Out of 10): 3 Left Shoulder Pain Intensity (Out of 10): 2 OLGUIN Pain Intensity (Out of 10): 2 LB Pain Intensity (Out of 10): 3 R SH Pain Intensity (Out of 10): 0 - Objective Objective/Function: POSTURE: mild foward posture. NEURO: c/o parathesia/tingling arms. PALPATION: tender UT /SCAPULAR. MMT: 4-/5 ,shoulder 3+/5. CERVICAL ROM: flexion min loss,rotation/lateral flexion,extension mod loss - Goals Goal 1:: Independant with HEP Goal Progress: Progressing Goal 2:: Improve posture for ADL'S Goal Progress: Progressing Goal 3:: Increase strength left UE 4-/5 to improve function and ADL'S Goal Progress: Progressing Goal 4:: Patient to improve cervical ROM for function of recovery Goal 5:: Patient to decrease pain cervical and radicular symptoms by 40-50% to improve function Goal Progress: Not Progressing Goal 6:: Patient to improve JOSE LUIS neck score by 5 points to improve QOL. Goal Progress: Goal Met - Plan Plan: D/C - D/C Information Discharge Comments: RECOMMEND MRI If there are questions or concerns regarding this patient's physical therapy, please feel free to call me at [phone]. Thank you for the referral of this patient. Sincerely, Armando Izaguirre, PT, Cert MDT, OCS
--- NOTE | 2019-03-01 09:59 | HP.PTDCSUM ---
HP - PT D/C Summary It has been my pleasure to treat CALI GUERRA under orders from JAMIE Hu, for the diagnosis of CERVICAL RADICULOPATHY,SPONDYLOSIS,CERVICAL SPINAL STENOSIS for a total of 13 visit(s). Discharge Date: 03/01/19 Please see the following information for a summary of their discharge status. - Subjective Subjective: Pain is about same . Hope to get MRI. Symptms worse today - Pain Bilateral Neck Pain Intensity (Out of 10): 3 Left Shoulder Pain Intensity (Out of 10): 3 OLGUIN Pain Intensity (Out of 10): 3 LB Pain Intensity (Out of 10): 3 R SH Pain Intensity (Out of 10): 3 - Overall Improvement % Improvement: 30 - Objective Objective/Function: POSTURE: rounded shoulders head foward. NEURO: intact. CERVICAL ROM: flexion min loss,lateral flexion,rotation mod loss,extension mod loss. MMT: BUE grossly 4/5,shoulder 4-/5 - Goals Goal 1:: Independant with HEP Goal Progress: Progressing Goal 2:: Improve posture for ADL'S Goal Progress: Progressing Goal 3:: Increase strength left UE 4-/5 to improve function and ADL'S Goal Progress: Progressing Goal 4:: Patient to improve cervical ROM for function of recovery Goal 5:: Patient to decrease pain cervical and radicular symptoms by 40-50% to improve function Goal Progress: Not Progressing Goal 6:: Patient to improve JOSE LUIS neck score by 5 points to improve QOL. Goal Progress: Goal Met - Plan Plan: D/C RECOMMEND MRI - D/C Information Discharge Comments: MRI If there are questions or concerns regarding this patient's physical therapy, please feel free to call me at [phone]. Thank you for the referral of this patient. Sincerely, Armando Izaguirre, PT, Cert MDT, OCS
== END 2019-03-01 19:00 | disposition home or self-care (01) ==
LOC: PT 09:30
PROVIDERS: Family Provider Family Medicine; PCP Family Medicine; Referring Provider Nurse Practitioner Family; Visit Provider Nurse Practitioner Family
DX: M47.812 Spondylosis without myelopathy or radiculopathy, cervical region (principal); M48.9 Spondylopathy, unspecified; M54.12 Radiculopathy, cervical region; M48.02 Spinal stenosis, cervical region
CPT/HCPCS: 97014; 97035; 97110; 97140; 97162; 97530; G0283

== ENCOUNTER → 2019-04-15 06:18 | Outpatient (CLI) | payer MEDICAID, SELFPAY ==
--- NOTE | 2019-04-15 06:37 | MRI_ITS ---
STUDY: MRI CERVICAL SPINE WITHOUT CONTRAST REASON FOR EXAM: Female, 58 years old. Cervical stenosis. Neck pain x7 years. TECHNIQUE: Standardized fat and water weighted pulse sequences were obtained in the sagittal and axial planes. COMPARISON: None FINDINGS: Normal foramen magnum and brainstem-cervical cord junction. Normal craniovertebral junction. Normal anterior atlantoaxial articulation. Normal odontoid process. Normal cervical lordosis. Normal vertebral bodies and posterior osseous elements. C2-3: Normal endplates. Normal disc height, signal and morphology. Normal central canal and intervertebral neural foramina. C3-4: Normal endplates. Normal disc height, signal and morphology. Normal central canal and intervertebral neural foramina. C4-5: Normal endplates. Normal disc height, signal and morphology. Normal central canal and intervertebral neural foramina. C5-6: Normal endplates. Normal disc height, signal and morphology. Normal central canal and intervertebral neural foramina. C6-7: Normal endplates. Normal disc height, signal and morphology. Normal central canal and intervertebral neural foramina. C7-T1: Normal endplates. Normal disc height, signal and morphology. Normal central canal and intervertebral neural foramina. T1-T2, T2-T3 and T3-T4: (Sagittal only). Normal endplates. Normal disc height, hydration and morphology. Normal central canal and intervertebral neural foramina. Normal cervical cord. Normal visualized soft tissue structures. MRI/Spine Cervical (Routine) IMPRESSION: Normal unenhanced MR examination of the cervical spine. Electronically Signed: Mitch Cramer MD at 10:11 EDT , Service support ,
== END ==
PROVIDERS: Family Provider Family Medicine; PCP Family Medicine; Visit Provider Nurse Practitioner Family
DX: M48.9 Spondylopathy, unspecified (principal); M54.12 Radiculopathy, cervical region; M47.812 Spondylosis without myelopathy or radiculopathy, cervical region
CPT/HCPCS: 72141

== ENCOUNTER 2020-07-31 15:43 | Observation (INO) | payer MEDICAID, SELFPAY ==
--- NOTE | 2020-06-22 11:36 | HP_ITS ---
Intake Intake Visit Reasons: LEFT KNEE Accompanied by: Self Allergies No Known Allergies Allergy (Unverified 06/22/20 08:51) Medications aspirin 81 mg tablet,delayed release 81 mg PO DAILY 06/14/20 [History Confirmed 06/22/20] baclofen 10 mg tablet 10 mg PO DAILY 06/14/20 [History Confirmed 06/22/20] diclofenac sodium 1 % topical gel 2 g TOPICAL ONCE 06/14/20 [History Confirmed 06/22/20] gabapentin 400 mg capsule 400 mg PO TID 06/14/20 [History Confirmed 06/22/20] lisinopril 40 mg tablet 40 mg PO DAILY 06/14/20 [History Confirmed 06/22/20] metformin 500 mg tablet 500 mg PO DAILY 06/14/20 [History Confirmed 06/22/20] omeprazole 40 mg capsule,delayed release 40 mg PO DAILY 06/14/20 [History Confirmed 06/22/20] omeprazole 40 mg capsule,delayed release 40 mg PO DAILY 06/22/20 [History Confirmed 06/22/20] triamterene 37.5 mg-hydrochlorothiazide 25 mg tablet tab PO 06/22/20 [History Confirmed 06/22/20] PFS Medical History (Updated 06/22/20 @ 09:36 by Amita Michelle) Arthritis (Acute) Diabetes (Acute) Irregular heart beat (Acute) Hypertension (Chronic) Surgical History (Updated 06/14/20 @ 09:27 by Kathleen Rivas) H/O: hysterectomy (Acute) bilateral knee surgery (Acute) gallbladder removed (Acute) Social History (Updated 06/22/20 @ 11:[address] Keegan Caballero DO) Smoking Status: Former smoker HPI LEFT KNEE: Surgical H&P: Yes Details: Parts of this documentation were recorded by a scribe, this documentation accurately reflects the service provided and the decisions made by pr, Dr. Keegan Caballero DO 06/22/20 0800. CALI GUERRA is a 59 year old F here today as a consult from Dr. Gonzalez in regards to a left TKA. Onset: 1994. Patient has previously done cortisone injections, knee braces, physical therapy and three arthroscopic surgeries ([id number]). Patient has previously seen Dr. Jalloh, and Dr. Nguyen. Patient takes Tylenol OTC for pain. Patient has difficulty with ambulating the stairs. Patient recently had bilateral knee x-rays on 06/14/2020. Last knee injections were approximated years ago, which provided no relief. No groin pain with ROM.Patient cannot do NSAIDs secondary to developing ulcers from previous NSAID use ROS Musc Reports system reviewed and no additional complaints, except as docu, Reports joint pain, Reports joint swelling, Reports numbness, Reports stiffness, Reports tingling Skin/Breast Reports system reviewed and no additional complaints, except as docu, Denies dry skin, Denies redness, Denies lesions, Denies new lesions, Denies non-healing lesions, Denies itching, Denies rash, Denies skin ulcer, Denies sores, Denies wounds Neuro Yes system reviewed and no additional complaints, except as docu, Yes numbness, Yes tingling Ortho Exam Right Knee Patella Translation: 1 Left Knee Skin/Wound: No ecchymosis, No erythema, No swelling Homans Sign: No Knee ROM: Yes ROM-Extension -20 to 0 (30), Yes ROM-Flexion 0-140 (108) Examination: No med jt line tenderness Stability: NML: Anterior Drawer, NML: Posterior Drawer, NML: Valgus 0, NML: Varus 0, NML: Varus 30, 1+: Valgus 30 (3mm) Patella Translation: 1 Patella Grind: Yes KNEE: No varus instability No joint effusion Palpable pedal pulses intact light sensation throughout lower extremity Supplemental Info 06/14/2020 x-ray left knee: Advanced knee arthrosis with varus deformity joint space narrowing of the subchondral sclerosis and large bone spurs Assessment & Plan Problems 1. Bilateral primary osteoarthritis of knee M17.0 Plan Personally reviewed recent X-rays of the bilateral knees. Discussed and educated pt would be a candidate for a knee replacement. Reviewed the pre-operative plans with the patient. Risks and benefits of the procedure were fully explained, including but not limited to infection, neurovascular injury, continued pain, arthritis, stiffness, need for further surgery, re-injury, DVT, PE, general risks of anesthesia, and loss of limb or life. The patient understands all the risks and does wish to proceed with written consent. Discussed patient would be on a blood thinner for two weeks post-op and encouraged ambulation, as well as wearing compression stockings to promote circulation. Physical therapy will also be ordered. Can take up to a full two years for full recovery. When kneeling, place down a knee pad. Patient may ambulate stairs with assistance of right leg. Prophylactically ATB's for life with any dental procedures. Discussed patient can have the right knee replaced after three months post left TKA. Also discussed and educated the benefits of the Iovera injection. Patient would like to proceed with getting aproval with Iovera and with surgery. All questions answered. Patient in agreement of plan. Coding Level of Care Code Off vis,est,level 3 Diagnoses Bilateral primary osteoarthritis of knee M17.0 06/22/20 1136 <Electronically signed by Keegan alvarez DO> Date _ Keegan Caballero DO
[2020-06-28 09:35] VITALS: BMI 40.0
--- NOTE | 2020-07-10 08:42 | EKG12_ITS ---
Test Reason : PRE OP Blood Pressure : / mmHG Vent. Rate : 061 BPM Atrial Rate : 061 BPM P-R Int : 188 ms QRS Dur : 080 ms QT Int : 408 ms P-R-T Axes : 047 014 049 degrees QTc Int : 410 ms Normal sinus rhythm Normal ECG Confirmed by MALIA ASHTON, MADAI ([id number]), offline editor LANCE VO ([id number]) on 07/11/2020 8:47:04 AM Referred By: Keegan Caballero Confirmed By:MADAI FINLEY MD
[2020-07-10 09:48] LABS: Absolute Lymphocyte Count 2.52 X10^3/uL (0.83-4.51); Basophil# 0.03 X10^3/uL; Basophil% 0.4 % (0-1); Eosinophil# 0.07 X10^3/uL; Hematocrit 37.3 % (37-47); Hemoglobin 12.3 g/dL (12.0-15.0); Lymphocyte # 2.52 X10^3/ul (4.0); Monocyte# 0.55 X10^3/uL; Monocyte% 7.6 % (0-10); NRBC Flagged by Analyzer 0 % (0-5); Neutrophil # 3.97 X10^3/uL (2.7-7.7); Platelet Count 429 K/mm3 (150-450); RBC Distribution Width CV 12.7 % (11.6-14.6); RBC Distribution Width SD 42.4 fl (35.1-43.9); White Blood Count 7.2 K/mm3 (4.4-11.0)
[2020-07-10 10:00] LABS: International Normalized Ratio 0.9
[2020-07-10 10:01] LABS: Partial Thromboplast Time 27.4 Seconds (24.1-36.2)
[2020-07-10 10:07] LABS: Magnesium 2.3 mg/dL (1.6-2.6)
[2020-07-10 10:09] LABS: Anion Gap 5 (5-15); BUN 12 mg/dL (7-18); BUN/Creat Ratio 14.6 RATIO (10-20); Calcium,Total 9.3 mg/dL (8.5-10.1); Chloride 95 mmol/L (98-107); Creatinine, Serum 0.82 mg/dL (0.55-1.02); EST Glomerular Filtration Rate 76 mL/min (>60); Est Glom Filt Rate - Afr Amer 91 mL/min (>60); Glucose 86 mg/dL (74-106); Potassium 3.9 mmol/L (3.5-5.1); Sodium Level 128 mmol/L (136-145)
[2020-07-10 10:18] LABS: Hemoglobin A1c 5.7 % (3.8-5.6)
[2020-07-12 09:16] VITALS: BMI 40.0
[2020-07-31] VITALS (11 sets, daily range): BP systolic 118–149; BP diastolic 58–82; PULSE 65–83; RESP 16–18; TEMP 36.1–37.6; O2SAT 94–100; BMI 39.0
[2020-07-31] MEDS: Acetaminophen 500 MG Tablet 1000 MG PO ×2 (12:07→22:03)
[2020-07-31] MEDS: Gabapentin 600 MG Tablet PO (12:08)
[2020-07-31] MEDS: Celecoxib 200 MG Capsule 400 MG PO (12:08)
[2020-07-31] MEDS: Scopolamine 1mg/72hr Patch 1 PATCH TRANSDERM. (12:09)
[2020-07-31 12:30] LABS: Bedside Glucose 80 mg/dL (70-110)
[2020-07-31] MEDS: Lactated Ringers 1,000 ML 100 ML IV (12:32)
[2020-07-31] MEDS: Cefazolin 2 GM in 0.9% Normal Saline 100 ML IV (13:50)
[2020-07-31] MEDS: dexAMETHasone 10 MG/ML Vial IV (13:52)
[2020-07-31] MEDS: Epinephrine (1 mg/ml) 1 MG/ML VIAL (15:05)
[2020-07-31] MEDS: Betamethasone/Betamethasone 30 MG/5 ML Vial (15:05)
[2020-07-31] MEDS: Bupivacaine Mpf 0.5% 30 ML VIAL (15:05)
--- NOTE | 2020-07-31 15:58 | PCM.DC.ORTHO ---
Discharge Diet: 2000 Calorie Control Diet Weight Bearing Status: Weight bearing as tolerated Call your doctor if you observe: Shortness of breath, Chest pain Additional Instructions: Ice and elevate one week while not ambulating. Ambulation is encouraged. Weightbearing as tolerated. Use assistive devise for stability. Encourage FULL knee extension and flexion 1 time EVERY time you get up and down and MULTIPLE times per day. No showering 72 hours after surgery. Begin showering postop day #3. Remove the dressing prior to shower and gently wash with warm water and antibacterial soap then pat dry and place abdominal pad (or plain gauze) and MARII hose over top. This is to be done daily. Do not submerge for 3 weeks. If not showering daily after the initial 72 hours then you must clean incision and change dressing daily. Do not allow animals near the incision area. Keep clean. Follow anticoagulation recommendations as prescribed. Do not take any NSAIDs while on blood thinner. Do not take any additional narcotic pain medication other than what was prescribed on you surgery day without discussing with physician. Start physical therapy. If you are not currently scheduled for physical therapy or you are unsure of appointment time please call office [facility] to arrange. Call Dr. Caballero with any concerns. Allergies/Adverse Reactions: Allergies No Known Allergies Allergy (Verified 07/31/20 11:40) Medications to take at Discharge aspirin 81 mg tablet,delayed release 81 mg PO DAILY 06/14/20 baclofen 10 mg tablet 10 mg PO DAILY PRN 06/14/20 diclofenac sodium 1 % topical gel 2 g TOPICAL PRN PRN 06/14/20 gabapentin 400 mg capsule 400 mg PO TID 06/14/20 lisinopril 40 mg tablet 30 mg PO DAILY 06/14/20 metformin 500 mg tablet 500 mg PO DAILY 06/14/20 omeprazole 40 mg capsule,delayed release 40 mg PO BID 06/14/20 triamterene 37.5 mg-hydrochlorothiazide 25 mg tablet 1 tab PO DAILY 06/22/20 Diltiazem HCl [Cartia Xt] 180 mg PO DAILY 07/03/20 Acetaminophen [Tylenol] 1,000 mg PO Q8 #100 tab 07/31/20 Apixaban [Eliquis] 2.5 mg PO BID #28 tab 07/31/20 Oxycodone [Oxyir] 5 - 10 mg PO Q4H PRN PRN #60 tab 07/31/20 The following prescriptions were given: Apixaban [Eliquis] 2.5 mg PO BID #28 tab Transmission Status: Pending to [facility] Oxycodone [Oxyir] 5 - 10 mg PO Q4H PRN PRN #60 tab PRN Reason: Pain Score 4-10 Prescription Printed Acetaminophen [Tylenol] 1,000 mg PO Q8 #100 tab Transmission Status: Pending to [facility] Orders to be completed after discharge: Type & Screen - PAT ONLY Time Frame: 07/31/20, Facility: [facility], Location: Laboratory Primary Care Physician: Dallin Ashton MD [Primary Care Provider] - Test Results: Test results from this visit will be discussed in further detail at your follow-up appointment, if applicable. Please Follow Up With: Keegan Caballero DO - 2 weeks
[2020-07-31] MEDS: Lactated Ringers 1,000 ML 125 ML IV (16:00)
--- NOTE | 2020-07-31 16:03 | DCINST_ITS ---
Discharge Diet: No Restrictions Weight Bearing Status: Weight bearing as tolerated Call your doctor if you observe: Shortness of breath, Chest pain Additional Instructions: Begin daily showering warm water antibacterial soap postop day #3( 72hrs Post- operatively) and then daily. Leave the dressing on for 72 hours postoperatively then may remove prior to first shower and change dressing daily after this until no drainage for 2 consecutive days then may leave open to air. Follow hip precautions that were reviewed in hospital. Wear compression stockings, may remove at night. Start physical therapy as directed in hospital. Call Dr. Caballero's office with any concerns. Allergies/Adverse Reactions: Allergies No Known Allergies Allergy (Verified 07/31/20 11:40) Medications to take at Discharge aspirin 81 mg tablet,delayed release 81 mg PO DAILY 06/14/20 baclofen 10 mg tablet 10 mg PO DAILY PRN 06/14/20 diclofenac sodium 1 % topical gel 2 g TOPICAL PRN PRN 06/14/20 gabapentin 400 mg capsule 400 mg PO TID 06/14/20 lisinopril 40 mg tablet 30 mg PO DAILY 06/14/20 metformin 500 mg tablet 500 mg PO DAILY 06/14/20 omeprazole 40 mg capsule,delayed release 40 mg PO BID 06/14/20 triamterene 37.5 mg-hydrochlorothiazide 25 mg tablet 1 tab PO DAILY 06/22/20 Diltiazem HCl [Cartia Xt] 180 mg PO DAILY 07/03/20 Acetaminophen [Tylenol] 1,000 mg PO Q8 #100 tab 07/31/20 Apixaban [Eliquis] 2.5 mg PO BID #28 tab 07/31/20 Oxycodone [Oxyir] 5 - 10 mg PO Q4H PRN PRN #60 tab 07/31/20 The following prescriptions were given: Apixaban [Eliquis] 2.5 mg PO BID #28 tab Prescription Printed Oxycodone [Oxyir] 5 - 10 mg PO Q4H PRN PRN #60 tab PRN Reason: Pain Score 4-10 Prescription Printed Acetaminophen [Tylenol] 1,000 mg PO Q8 #100 tab Prescription Printed Orders to be completed after discharge: Type & Screen - PAT ONLY Time Frame: 07/31/20, Facility: [facility], Location: Laboratory Primary Care Physician: Dallin Ashton MD [Primary Care Provider] - Test Results: Test results from this visit will be discussed in further detail at your follow- up appointment, if applicable. Please Follow Up With: Keegan Caballero DO When: 2weeks
--- NOTE | 2020-07-31 16:05 | OP.PCM_ITS ---
Report of Operation Date of Procedure: 07/31/20 Description of Surgical Findings:: Preoperative diagnosis: Left knee DJD Postoperative diagnosis: Same Procedure: Left total knee arthroplasty CT guided Robotic Assisted Implant: Mynor triathlon Cemented femoral component size 4, Cementedtibial baseplate size 3 Cemented asymmetric patella size 32, polyethylene X3 size 9 CS Anesthesia: spinal with adductor canal block Tourniquet time: 44 minutes at 300 mmHg Complications: None Condition: Stable to PACU Estimated blood loss: 150 cc Indication for procedure: This is a 59-year-old female with long standing degenerative joint disease of the knee who has failed conservative treatment and wished to proceed with elective total knee arthroplasty. Risk benefits and alternatives were reviewed including; risk of bleeding, infection, nerve artery and tissue damage, continued pain, postoperative stiffness, venous thromboembolism, need for postoperative rehabilitation, mechanical feel to the knee, and expected postoperative course. The operative CT and templating was performed with component sizing Procedure: The patient was met in the preoperative holding area. The operative extremity was identified by both patient and physician and was marked. Patient was met by anesthesia. An adductor canal block was placed by anesthesia postoperatively the patient was brought back to the operating room on a wheeled cart and transferred to the operating table in the supine position. Anesthesia was started. A well-padded tourniquet was placed on the operative extremity. The patient was prepped and draped in the usual sterile fashion. A timeout was called to ensure the proper patient procedure and extremity were being contemplated. An Esmarch was used to exsanguinate the extremity. The tourniquet was inflated. A 10 blade scalpel was used to make a midline incision down through the skin and subcutaneous tissue. Skin retractors placed. Bovie was used to perform meticulous hemostasis. full-thickness flaps were elevated medial and lateral along the joint capsule. A deep blade scalpel was used to perform a medial parapatellar arthrotomy. The knee was brought to full extension. A Bovie was used to release the soft tissues off the most proximal aspect of the medial tibial plateau a three-quarter inch curved osteotome was also used for this process. The infrapatellar fat pad was excised. The fat pad was excised partially anterior lateral portion the anterior medial was elevated from the femur. At this point our intra-articular femoral array was placed of a 45 degree angle proximal and posterior to the medial epicondyle. Our tibial array was placed greater than 1 hands breath below the incision at a 20 degree angle stab incisions were used for this case were attached and checked with the robotic software. Tourniquet was let down. At this point registration meraz were taken throughout the knee as well as checkpoints placed in the femur and tibia once the knee was registered then tensioned the medial and lateral ligaments in extension and 90 degrees of flexion. We then used these numbers to adjust our components within parameters to balance the knee in both flexion and extension once this was done on our monitor we then proceeded with using the robotic arm to make our tibial plateau cut and anterior posterior and chamfer cuts on the femur we then trialed and achieved the desired plan with a well- balanced knee. Lug holes were drilled in the femur the tibia preparation was completed with a fin punch and the patella was prepared by first using a caliper to ensure sufficient bone stock and a patellar reamer to remove the desired amount of bone locals were drilled for an asymmetric poly-. We then brought the knee through range of motion with excellent patellar tracking. We thoroughly irrigated the knee with a trial components were removed a posterior capsular injection with her standard cocktail was performed the aqua Mantis was also used to aid in hemostasis. Betadine rinse was allowed to sit and washed out components were Cemented. Aricept rinse was then used followed by several more rate liters of irrigation after it was allowed to sit. Joint capsule was closed with #1 Ethibond [id number] followed by Vicryl in the subcutaneous tissues staple in the skin arrays and checkpoints were removed prior to closure all counts were correct stab incisions were closed with a stable standard dressing in the form of Mepilex for the main incision Xeroform 4 x 4 and Tegaderm over pin site holes. Thigh-high MARII hose applied over top of dressing. Patient tolerated the procedure well and was directed to PACU in stable condition no intraoperative complications
--- NOTE | 2020-07-31 16:20 | RAD_ITS ---
STUDY: X-RAY - LEFT KNEE REASON FOR EXAM: Female, 59 years old. POST OP PORTABLE AP AND LAT LEFT KNEE. TECHNIQUE: 2 view(s) of the knee. COMPARISON: 06/14/2020 FINDINGS: Total knee arthroplasty. Gas is within the joint. Skin verona anteriorly. Normal visualized distal femur. Normal visualized proximal tibia and fibula. Normal proximal tibiofibular articulation. Normal medial femorotibial compartment. Normal lateral femorotibial compartment. Normal patellofemoral articulation. The soft tissue structures are unremarkable. RAD/Knee 1 or 2 Views IMPRESSION: Total knee arthroplasty Electronically Signed: Rubén Don MD at 18:14 EDT , Service support ,
[2020-07-31] MEDS: Cefazolin 1 GM/50 ML BAG IV ×2 (17:15→22:01)
[2020-07-31] MEDS: Gabapentin 400 MG Capsule PO (19:02)
[2020-07-31] MEDS: oxyCODONE 5 MG Tablet PO (19:03)
[2020-07-31] MEDS: Baclofen 10 MG Tablet PO (19:03)
[2020-07-31] MEDS: Pantoprazole Sodium 40 MG Tablet PO (22:02)
[2020-07-31] MEDS: Senna/Docusate Sodium 1 Tablet 2 TABLET PO (22:03)
[2020-08-01] MEDS: oxyCODONE 5 MG Tablet PO ×3 (00:42→13:38)
[2020-08-01] MEDS: Cefazolin 1 GM/50 ML BAG IV ×2 (05:41→13:38)
[2020-08-01 05:42] LABS: Hematocrit 37.1 % (37-47); Hemoglobin 11.6 g/dL (12.0-15.0); Mean Corp Hgb Conc 31.3 g/dL (32-36); Mean Corpuscular Hgb 29.7 pg (27.0-32.0); Mean Corpuscular Volume 95.1 fL (81-99); Mean Platelet Vol. 8.4 fl (6.2-12.0); Platelet Count 468 K/mm3 (150-450); RBC Distribution Width CV 13.8 % (11.6-14.6); RBC Distribution Width SD 48.3 fl (35.1-43.9); White Blood Count 10.1 K/mm3 (4.4-11.0)
[2020-08-01] MEDS: Acetaminophen 500 MG Tablet 1000 MG PO ×2 (05:52→13:39)
[2020-08-01 06:10] LABS: Anion Gap 5 (5-15); BUN 10 mg/dL (7-18); BUN/Creat Ratio 12.2 RATIO (10-20); Calcium,Total 8.9 mg/dL (8.5-10.1); Chloride 105 mmol/L (98-107); Creatinine, Serum 0.82 mg/dL (0.55-1.02); EST Glomerular Filtration Rate 76 mL/min (>60); Est Glom Filt Rate - Afr Amer 92 mL/min (>60); Estimated Creatinine Clearance 58.42 ml/min; Glucose 144 mg/dL (74-106); Sodium Level 136 mmol/L (136-145)
[2020-08-01] MEDS: APIXABAN 2.5 MG TABLET PO (07:02)
[2020-08-01 07:30] VITALS: O2SAT 94
[2020-08-01] MEDS: dilTIAZem CD 180 MG Capsule PO (09:06)
[2020-08-01] MEDS: Triamterene 37.5MG/Hctz 25MG Capsule 1 CAP PO (09:06)
[2020-08-01] MEDS: Pantoprazole Sodium 40 MG Tablet PO (09:06)
[2020-08-01] MEDS: Senna/Docusate Sodium 1 Tablet 2 TABLET PO (09:06)
[2020-08-01] MEDS: Lisinopril 10 MG Tablet 30 MG PO (09:06)
[2020-08-01] MEDS: Gabapentin 400 MG Capsule PO ×2 (09:07→12:11)
[2020-08-01] MEDS: metFORMIN (XR) 500 MG Tablet PO (09:09)
[2020-08-01 09:10] VITALS: BP 129/71; PULSE 68; RESP 18; TEMP 36.8; O2SAT 100
--- NOTE | 2020-08-01 10:30 | CASEMGMT ---
DONNY SWIFT Face to Face with patient for initial transition planning/care coordination assessment. DONNY SWIFT introduced self and role at [facility]. Patient sitting in chair, alert and oriented. Patient willing to participate in assessment and is able to answer all questions appropriately. Care providers, pharmacy, and demographics verified. Patient wishes to discharge home and is setup with [facility] for outpatient therapy. Patient states she has no further needs or concerns at this time. CM to follow for discharge planning needs that may arise. PCP: Poli Specialists: norma Caballero; chaparrita Liao Preferred Pharmacy: [facility] Insurance: [employer] Prescription Benefit: yes Living Will/HPOA: none LNOK: son, sister Living Arrangements: Patient lives with 10 yo grandson in a 2 story home with bed and bath setup on first floor. Patient states she is independent at home. Patient's son is currently staying with patient to assist with grandson Transportation: sister DME/HHC: Patient has shower chair, BSC, raised toilet, grab bars, and walker at home. Patient is scheduled for outpatient therapy at [facility] starting tomorrow. Disposition Plan: Patient to discharge home with outpatient therapy, family support, and follow-up plans in place. Lili REGALADO, RN, CM
--- NOTE | 2020-08-01 15:05 | PCM.DC.SUM ---
Discharge Date and Diagnosis Date of Admission: 07/31/20 Date of Discharge: 08/01/20 - Primary Discharge Diagnosis Acute Problems: Post-op Left total knee arthroplasty Orthopedic aftercare Hospital Course and Treatment Operations: total knee replacement - Left Procedures: None Summary of Care Provided: The patient is a 59 year old F who is admitted to floor for post-operative care following left total knee arthroplasty. Patient underwent routine left TKA without any intraoperative complications yesterday 07-31-2020. Patient was transferred to the floor from PACU. Since being to the floor there have been no nursing concerns or other complications noted. Patient states that she feels she is doing great and has no post operative concern or complaints. She states that she actually was able to ambulate almost immediately upon getting to her room late last evening to use the restroom. She states that she has really minimal pains at this time. She has been able to get up and walk with a walker around the halls today with minimal discomfort or concerns with stability. She has been eating and drinking normally without problems. She denies any shortness of breath, coughing, chest pains/pressures, nausea, vomiting, headache, dizziness, weakness, diarrhea, calf pains/tenderness, fatigue/weakness, or any other issues. Patient states that she feels very comfortable going home at this time. ] Subjective: PAtient states that she feels very good at this time having minimal pains/discomfort in the knee. She states that she has been told she is doing fabulous and feels that she is as well. She denies any chest pains/pressures, cough, shortness of breath, headache, visual change, nausea, vomiting, diarrhea, fatigue/weakness, calf pains, or any other symptoms. She states she has been able to eat without any problems and has been able to use the restroom as well. PAtient feels that she is more than ready to go home. Objective: Patient was examined while she was seated in chair beside her bed with knee propped up and ice overlying the knee. She is alert, oriented x 3 and is very pleasant and conversive without any signs of pain or distress. - Physical Exam Vitals/I&O's: Vital Signs Temp Pulse Resp BP Pulse Ox 98.2 F 68 18 129/71 H 100 08/01/20 09:10 08/01/20 09:10 08/01/20 09:10 08/01/20 09:10 08/01/20 09:10 Oxygen Flow Rate (L/min) 6 Oxygen Delivery Method Room Air Weight: 217 lb 2.485 oz Body Mass Index (BMI) 39.0 Intake and Output for Last 24 Hours 07/30/20 07/31/20 08/01/20 23:59 23:59 23:59 Intake Total 942.67 / 1542.67 3815 / 3815 Output Total 450 / 450 Balance 942.67 / 1092.67 3365 / 3365 General: Alert, Oriented x3, Cooperative, No apparent distress Oral: Moist Mucosa Lungs: Normal air movement Extremities: No Calf Tenderness, Peripheral Pulses Normal Skin: No rashes, - - minor ecchymosis/bruising on anterior/medial knee. No erythema. no warmth on palpation. Musculoskeletal: No Tenderness to Palpation of Joints or Extremities - Patient states it is a little sore but not painful on palpation, - - lower leg compartments are soft and non-tender. Intact motor function of the knee/ankle/foot/toes. Neurological: Muscle tone normal, Sensory exam intact to light touch and pain Psych/Mental Status: Normal Affect, Appropriate Laboratory Results 08/01/20 04:52: WBC 10.1, RBC 3.90 L, Hgb 11.6 L, Hct 37.1, MCV 95.1, MCH 29.7, MCHC 31.3 L, RDW Std Deviation 48.3 H, RDW Coeff of Judie 13.8, Plt Count 468 H, MPV 8.4 08/01/20 04:52: Sodium 136, Potassium 4.0, Chloride 105, Carbon Dioxide 26.0, Anion Gap 5, BUN 10, Creatinine 0.82, Estim Creat Clear Calc 58.42, Est GFR (MDRD) Af Amer 92, Est GFR (MDRD) Non-Af 76, BUN/Creatinine Ratio 12.2, Glucose 144 H, Calcium 8.9 Current Medications Acetaminophen (Acetaminophen 500 Mg Tablet) 1,000 mg PO Q8 [facility] Last Admin: 08/01/20 13:39 Dose: 1,000 mg Documented by: Apixaban (Apixaban 2.5 Mg Tablet) 2.5 mg PO 0700,1900 [facility] Last Admin: 08/01/20 07:02 Dose: 2.5 mg Documented by: Baclofen (Baclofen 10 Mg Tablet) 10 mg PO TID PRN PRN Reason: .MUSCLE SPASM Last Admin: 07/31/20 19:03 Dose: 10 mg Documented by: Diltiazem HCl (Diltiazem Cd 180 Mg Capsule) 180 mg PO DAILY [facility] Last Admin: 08/01/20 09:06 Dose: 180 mg Documented by: Gabapentin (Gabapentin 400 Mg Capsule) 400 mg PO TIDCM [facility] Last Admin: 08/01/20 12:11 Dose: 400 mg Documented by: Hydromorphone HCl (Hydromorphone 0.5 Mg/0.5 Ml Syringe) 0.5 mg IV Q2H PRN PRN PRN Reason: Pain Score 6-10 Sodium Chloride () 250 mls @ 15 mls/hr IV .[id number] PRN PRN Reason: Saline Flush Sodium Chloride () 250 mls @ 15 mls/hr IV .[id number] PRN PRN Reason: Additional IVPB Infusion Lisinopril (Lisinopril 10 Mg Tablet) 30 mg PO DAILY [facility] Last Admin: 08/01/20 09:06 Dose: 30 mg Documented by: Metformin HCl ([facility] (Xr) 500 Mg Tablet) [facility] Admin: 08/01/20 09:09 Dose: 500 mg Documented by: Ondansetron HCl (Ondansetron 4 Mg/2 Ml Vial) 4 mg IV Q6H PRN PRN PRN Reason: NAUSEA Oxycodone HCl (Oxycodone 5 Mg Tablet) 5 - 10 mg PO Q4H PRN PRN PRN Reason: Pain Score 4-10 Last Admin: 08/01/20 13:38 Dose: 5 mg Documented by: Pantoprazole Sodium (Pantoprazole Sodium 40 Mg Tablet) 40 mg PO BID [facility] Last Admin: 08/01/20 09:06 Dose: 40 mg Documented by: Senna/Docusate Sodium (Senna/Docusate Sodium 1 Tablet) 2 tablet PO BID [facility] Last Admin: 08/01/20 09:06 Dose: 2 tablet Documented by: Sodium Chloride (0.9% Saline Lock 10 Ml Syringe) 10 - 40 ml IV UD PRN PRN Reason: SALINE FLUSH Triamterene/HCTZ (Triamterene 37.5mg/Hctz 25mg Capsule) 1 cap PO DAILY [facility] Last Admin: 08/01/20 09:06 Dose: 1 cap Documented by: Discharge Diet: 1999 Calorie Control Diet Weight Bearing Status: Weight bearing as tolerated Call your doctor if you observe: Shortness of breath, Chest pain Home Medications: Medications to take at Discharge aspirin 81 mg tablet,delayed release 81 mg PO DAILY 06/14/20 baclofen 10 mg tablet 10 mg PO TID PRN 06/14/20 diclofenac sodium 1 % topical gel 2 g TOPICAL PRN PRN 06/14/20 gabapentin 400 mg capsule 400 mg PO TID 06/14/20 lisinopril 40 mg tablet 30 mg PO DAILY 06/14/20 metformin 500 mg tablet 500 mg PO DAILY 06/14/20 omeprazole 40 mg capsule,delayed release 40 mg PO BID 06/14/20 triamterene 37.5 mg-hydrochlorothiazide 25 mg tablet 1 tab PO DAILY 06/22/20 Diltiazem HCl [Cartia Xt] 180 mg PO DAILY 07/03/20 Acetaminophen [Tylenol] 1,000 mg PO Q8 #100 tab 07/31/20 Apixaban [Eliquis] 2.5 mg PO BID #28 tab 07/31/20 Oxycodone [Oxyir] 5 - 10 mg PO Q4H PRN PRN #60 tab 07/31/20 Following Prescriptions Were Given to Patient: Apixaban [Eliquis] 2.5 mg PO BID #28 tab Prescription Printed Oxycodone [Oxyir] 5 - 10 mg PO Q4H PRN PRN #60 tab PRN Reason: Pain Score 4-10 Prescription Printed Acetaminophen [Tylenol] 1,000 mg PO Q8 #100 tab Prescription Printed Other Amb Orders: Type & Screen - PAT ONLY Time Frame: 07/31/20, Facility: [facility], Location: Laboratory Primary Care Physician: Dallin Ashton MD [Primary Care Provider] - Please Follow Up With: Keegan Caballero DO - 2 weeks When: 2weeks Additional Instructions: Ice and elevate one week while not ambulating. Ambulation is encouraged. Weightbearing as tolerated. Use assistive devise for stability. Encourage FULL knee extension and flexion 1 time EVERY time you get up and down and MULTIPLE times per day. No showering 72 hours after surgery. Begin showering postop day #3. Remove the dressing prior to shower and gently wash with warm water and antibacterial soap then pat dry and place abdominal pad (or plain gauze) and MARII hose over top. This is to be done daily. Do not submerge for 3 weeks. If not showering daily after the initial 72 hours then you must clean incision and change dressing daily. Do not allow animals near the incision area. Keep clean. Follow anticoagulation recommendations as prescribed. Do not take any NSAIDs while on blood thinner. Do not take any additional narcotic pain medication other than what was prescribed on you surgery day without discussing with physician. Start physical therapy. If you are not currently scheduled for physical therapy or you are unsure of appointment time please call office [facility] to arrange. Call Dr. Caballero with any concerns. Medical Necessity - Tobacco Use Smoking Status: Never smoker Tobacco Use: Non-smoker Meaningful Use Info Meaningful Use Diagnoses (Choose all that apply): None applicable
[2020-08-01 15:16] VITALS: BP 120/61; PULSE 66; RESP 18; TEMP 36.8; O2SAT 100
== END 2020-08-01 16:17 | disposition home or self-care (01) ==
LOC: SDC 16:28 → MS3 16:28
PROVIDERS: Anesthesiology; Admitting Provider Orthopaedic Surgery; PCP Family Medicine; Referring Provider Orthopaedic Surgery; Visit Provider Orthopaedic Surgery
PROC: (CPT 27447; principal; 2020-07-31 12:50)
DX: M17.0 Bilateral primary osteoarthritis of knee (principal); E11.9 Type 2 diabetes mellitus without complications; I10 Essential (primary) hypertension; I49.9 Cardiac arrhythmia, unspecified; Z20.818 Contact with and (suspected) exposure to other bacterial communicable diseases; Z11.59 Encounter for screening for other viral diseases; Z87.891 Personal history of nicotine dependence; Z79.84 Long term (current) use of oral hypoglycemic drugs; Z79.82 Long term (current) use of aspirin; Z79.899 Other long term (current) drug therapy; K44.9 Diaphragmatic hernia without obstruction or gangrene; K21.9 Gastro-esophageal reflux disease without esophagitis; R91.8 Other nonspecific abnormal finding of lung field; M48.00 Spinal stenosis, site unspecified
CPT/HCPCS: 01400; 27447; 64447; S2900; 36415; 73560; 80048; 82962; 83036; 83735; 85025; 85027; 85610; 85730; 86850; 86900; 86901; 87081; 87635; 93005; 96365; 96366; 97110; 97116; 97162; 97166; 97530; 97535; 99218; 99251; C1776; C9803; J7120; G0378; G0379; G0463; J0702; U0003

== ENCOUNTER 2020-10-11 11:00 | Outpatient (RCR) | payer MEDICAID, SELFPAY ==
[2020-06-28 09:35] VITALS: BMI 40.0
[2020-07-31 17:44] VITALS: BMI 39.0
--- NOTE | 2020-08-02 15:06 | HP.PTEVAL ---
Patient's Visit Information CALI GUERRA is a 59 year old F referred to Physical Therapy by Dr. Keegan Caballero DO with a diagnosis of L TKA 07/31/20. Date of Evaluation: 08/02/20 Physical Therapist: Alexis Raphael, PT, ATC - Visit Plan Frequency: 2-3x /Week Duration: 4-6 Weeks Plan: L knee PROM/Mobs, stretching and strengthening, balance and proprio, nustep, and HEP - Subjective DOS: 07/31/2020. Pt reports she had L TKA performed. Pt notes she had intermittent L Knee pain for greater than 25 years. Pt notes she had multiple surgeries performed over the past, but the pain always returned. Pt reports she is still in a lot of pain today, but is glad to have had the surgery at this time. No tingling or numbness in L LE. Sig sleep difficulty secondary to pain. 14 stairs at home she hasnt negotiated yet. Pt is disabled at this time. - Pain L TKA Pain Intensity (Out of 10): 5 Pain Intensity Range: 7 - Objective Neuro: B LE sensation is WNL to light touch. B achilles reflex= 2/3. ROM: R knee 0-110 degrees, L knee 0-10-75. MMT: L knee is 3-/5 and painful. R knee 5/5 throughout. Girth at joint line: R knee 41 cm, L knee 43 cm. Gait: Pt ambulates with WW. able to ambulate 120' until requesting to rest. - Goals Goal 1:: Decrease L knee pain x 50% to aid with sleep Goal Time Frame: 4-6 Weeks Goal 2:: Increase L knee ROM x 30 degrees to aid with ambulation Goal Time Frame: 4-6 Weeks Goal 3:: Increase L LE strength x 1 grade to aid with stair negotiation Goal Time Frame: 4-6 Weeks Goal 4:: I with HEP Goal Time Frame: 4-6 Weeks - Rehabilitation Potential Physical Therapy Diagnosis: L knee pain, weakness, and limited ROM secondary to L TKA Rehabilitation Potential: Good - Anticipated Interventions Patient/Client Instruction: Educate patient on: Condition, Plan of Care For the Purpose of:: To improve self management Therapeutic Exercise to Include: Strength training, Power training, Balance training, Flexibilty training, Active ROM, Dynamic Lumbar Stabilization For the Purpose of:: To decrease pain, To increase ROM, To improve muscle performance and motor function Cryotherapy (ice pack, ice massage): Yes For the Purpose of:: To decrease pain Thank you for the opportunity to evaluate your patient. For Medicare and Medicare HMO plans, please review the plan of care and approve it. It will need to be FAXED BACK to us at [phone] for Medicare purposes. For Medicare only, by signing this I certify the plan of care. Please let me know if there are questions or concerns regarding this plan of care. Physician Signature: Date:
--- NOTE | 2020-09-14 10:30 | HP.PTREVAL ---
Dr. Keegan Caballero, DO, It has been my pleasure to treat CALI Minor CHARLIE over the last 11 visits for L TKA 07/31/20. Please see the progress note below for an update on the physical therapy plan of care! Subjective: L knee is sore today. Pt reports is not pleased with ROM Objective/Function: L knee pain 12/19 this date. L knee ROM: 0-10-103 degrees. L knee MMT: 4+/5 throughout. Pt is progressing well toward Rx goals Plan Plan: L knee PROM/Mobs, stretching and strengthening, balance and proprio, nustep, and HEP Goals Goal 1:: Decrease L knee pain x 50% to aid with sleep Goal Time Frame: 4-6 Weeks Goal 2:: Increase L knee ROM x 30 degrees to aid with ambulation Goal Time Frame: 4-6 Weeks Goal 3:: Increase L LE strength x 1 grade to aid with stair negotiation Goal Time Frame: 4-6 Weeks Goal 4:: I with HEP Goal Time Frame: 4-6 Weeks Anticipated Interventions Patient/Client Instruction: Educate patient on: Condition, Plan of Care For the Purpose of:: To improve self management Therapeutic Exercise to Include: Strength training, Power training, Balance training, Flexibilty training, Active ROM, Dynamic Lumbar Stabilization For the Purpose of:: To decrease pain, To increase ROM, To improve muscle performance and motor function Cryotherapy (ice pack, ice massage): Yes For the Purpose of:: To decrease pain Please do not hesitate to contact me at [phone] by phone or if you have questions or concerns regarding this new plan of care! Sincerely, Alexis Raphael, PT, ATC
--- NOTE | 2020-10-11 11:19 | HP.PTDCSUM ---
It has been my pleasure to treat CALI GUERRA referred by Dr. Keegan Caballero DO, with the diagnosis of L TKA 07/31/20 for a total of 20 visit(s). Discharge Date: Please see the following information for a summary of their discharge status. Subjective: I dont have pain L TKA Pain Intensity (Out of 10): 0 % Improvement: 90 Objective/Function: L knee pain ranges from 0-4/10. L knee ROM: 0-109. L knee MMT: 5/5 throughout. I with HEP. Rx goals achieved Goal 1:: Decrease L knee pain x 50% to aid with sleep Goal Progress: Goal Met Goal 2:: Increase L knee ROM x 30 degrees to aid with ambulation Goal Progress: Goal Met Goal 3:: Increase L LE strength x 1 grade to aid with stair negotiation Goal Progress: Goal Met Goal 4:: I with HEP Goal Progress: Goal Met Plan: Discharge If there are questions or concerns regarding this patient's physical therapy, please feel free to call me at [phone]. Thank you for the referral of this patient. Sincerely, Alexis Raphael, PT, ATC
== END 2020-10-11 12:16 | disposition home or self-care (01) ==
LOC: PT 11:00
PROVIDERS: PCP Family Medicine; Referring Provider Orthopaedic Surgery; Visit Provider Orthopaedic Surgery
DX: Z47.1 Aftercare following joint replacement surgery (principal); Z96.652 Presence of left artificial knee joint
CPT/HCPCS: 97110; 97116; 97140; 97161; 97164

== ENCOUNTER → 2021-05-08 09:35 | Outpatient (CLI) | payer MEDICARE, SELFPAY ==
--- NOTE | 2021-05-08 09:41 | US_ITS ---
STUDY: RENAL ULTRASOUND - COMPLETE REASON FOR EXAM: Female, 60 years old. ANGIOMYOLIPOMA KIDNEY TECHNIQUE: Ultrasound evaluation of the kidneys was performed with real-time and static dumont-scale imaging. COMPARISON: None. FINDINGS: RIGHT KIDNEY: Normal location of the right kidney, which is normal in size. The right kidney measures 10.2 cm x 5.1 cm x 4.1 cm. There is a normal cortex of the right kidney. The renal cortex measures 1 cm. There is a 1.3 cm x 2.5 cm x 1.5 cm echogenic density in the inferior pole of the right kidney in keeping with angiomyolipoma. There are no right renal calculi. There is no right hydronephrosis. DISTAL RIGHT URETER: There is non-visualization of the distal right ureter. There is no demonstrated right ureterovesical junction calculus. There is a visualized right ureteral jet. LEFT KIDNEY: Normal location of the left kidney, which is normal in size. The left kidney measures 10.2 cm x 5.8 cm x 5.5 cm. There is a normal cortex of the left kidney. The renal cortex measures 1.2 cm. There is no left renal mass or cyst. There are no left renal calculi. There is no left hydronephrosis. DISTAL LEFT URETER: There is non-visualization of the distal left ureter. There is no demonstrated left ureterovesical junction calculus. There is a visualized left ureteral jet. BLADDER: The distended urinary bladder has a volume of 432 ml. The empty urinary bladder has a volume of 64 ml. There is a normal wall thickness of the distended urinary bladder. There is no demonstrated mass within the urinary bladder. There are no demonstrated bladder calculi. 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 Electronically Signed: Kvng Ambrocio MD at 15:28 EDT , Service support ,
== END ==
PROVIDERS: PCP Family Medicine; Referring Provider Urology; Visit Provider Urology
DX: D17.71 Benign lipomatous neoplasm of kidney (principal)
CPT/HCPCS: 76770

== ENCOUNTER → 2021-06-21 08:20 | Outpatient (CLI) | payer MEDICARE, MEDICAID, SELFPAY ==
--- NOTE | 2021-06-21 08:22 | CT_ITS ---
STUDY: CT ABDOMEN AND PELVIS WITH AND WITHOUT CONTRAST REASON FOR EXAM: Female, 60 years old. RT RENAL MASS RADIATION DOSAGE (If Supplied By Facility): CTDIvol = ( 25.78 ) mGy, DLP = ( 4050.46 ) mGycm TECHNIQUE: Transaxial images were obtained from the dome of the diaphragm to the symphysis pubis without oral contrast. 100mL Isovue 300 was administered. Sagittal and coronal images were reconstructed. Individualized dose optimization techniques were used for this CT. COMPARISON: Comparison is made with prior sonogram of the kidneys dated 05/08/2021. FINDINGS: The visualized lung bases are unremarkable. The visualized portions of the heart are within normal limits. There is decreased attenuation of the liver consistent with steatosis. The patient is status post cholecystectomy. 1.6 cm x 1.4 cm cyst in the upper anterior aspect of the spleen. Normal pancreas. Normal bilateral adrenal glands. There is an 8.1 mm x 11.6 mm fat-containing nodule in the anterior midportion of the right kidney incompletely small angiomyolipoma. This corresponds to the sonographic findings. Normal left kidney. There is a small hiatal hernia. Normal small intestine. Normal colon. There are surgical clips in the region of the appendix consistent with a prior appendectomy. There is scattered atherosclerotic calcification of the abdominal aorta, without a demonstrated aneurysm. Normal inferior vena cava. There is borderline retroperitoneal lymphadenopathy with enlarged nodes no greater than 10mm in the short axis diameter. Normal urinary bladder. There is absence of the uterus consistent with a prior hysterectomy. There is a small umbilical hernia containing fat. There are mild degenerative changes of the visualized lumbar spine. 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 Electronically Signed: Kvng Ambrocio MD at 10:01 EDT , Service support ,
[2021-06-21 08:50] LABS: EGFR FINGERSTICK > 60.0000 mL/min (>60)
== END ==
PROVIDERS: PCP Family Medicine; Visit Provider Urology
DX: Z01.812 Encounter for preprocedural laboratory examination (principal); N28.89 Other specified disorders of kidney and ureter
CPT/HCPCS: 74178; Q9967

== ENCOUNTER 2023-03-26 07:30 | Day surgery (SDC) | payer MEDICARE, MEDICAID, SELFPAY ==
[2023-03-26] VITALS (7 sets, daily range): BP systolic 105–142; BP diastolic 58–77; PULSE 58–74; RESP 16–95; TEMP 36.3–37.3; O2SAT 16–100; BMI 39.9
[2023-03-26] MEDS: Lactated Ringers 1,000 ML 15 ML IV (07:56)
[2023-03-26 08:23] LABS: Bedside Glucose 99 mg/dL (74-106)
--- NOTE | 2023-03-26 08:24 | DCINST_ITS ---
Discharge Instructions Diet Discharge Diet: No restrictions Activity Discharge Activity: Return to Normal Activity Dressing / Incision Call your doctor if you observe: Fever of 101 or Higher, Inability to urinate and Inability to have a bowel movement Follow Up Care Please Follow Up With: Estela Henson MD When: call office for appt. Test Results: Test results from this visit will be discussed in further detail at your follow- up appointment, if applicable. Discharge Plan Admission Attending Provider: Estela Henson Primary Care Provider: Dallin Ashton Discharge Orders/Prescriptions Prescriptions: New cephalexin [cephalexin] 500 mg capsule 500 mg PO Q12 3 Days Qty: 6 0RF Continued metformin 500 mg tablet 500 mg PO DAILY lisinopril 40 mg tablet 40 mg PO DAILY baclofen 10 mg tablet 10 mg PO TID PRN (Reason: Muscle Spasm) gabapentin 400 mg capsule 600 mg PO TID diclofenac sodium 1 % gel 2 g TOPICAL PRN PRN (Reason: Pain Or Fever) Rx Instructions: apply to single elbow, wrist or hand; for hand includes palm/fingers/back of hand diltiazem HCl 180 MG capsule,extended release 24hr 180 mg PO DAILY pantoprazole 40 mg tablet,delayed release (DR/EC) 40 mg PO DAILY Label Comments: TAKE 1 TABLET BY MOUTH TWICE DAILY 30 MINUTES BEFORE MEALS sucralfate 100 mg/mL suspension 10 mg PO BID Label Comments: TAKE 10 ML BY MOUTH TWICE DAILY metoprolol succinate 25 mg tablet extended release 24 hr 25 mg PO DAILY Label Comments: TAKE 1/2 (ONE-HALF) TABLET BY MOUTH ONCE DAILY tamoxifen 20 mg tablet 20 mg PO QHS Label Comments: TAKE 1 TABLET BY MOUTH ONCE DAILY Gemtesa 75 mg tablet 75 mg PO DAILY Label Comments: TAKE 1 TABLET BY MOUTH ONCE DAILY calcium 600 mg Capsule 600 mg PO DAILY biotin 500 mcg Capsule 1 mg PO DAILY cholecalciferol (vitamin D3) [Vitamin D3] 125 mcg (5,000 unit) Tablet 125 mcg PO DAILY Women's 50 Plus Daily Formula 400 mcg-500 mg calcium-20 mcg Tablet 1 tab PO DAILY aspirin 81 mg Capsule 81 mg PO DAILY acetaminophen 500 mg tablet See Rx Instructions PO TID PRN (Reason: pain) Qty: 100 0RF Rx Instructions: 1-2 tablets Q8 hours PRN; Referrals / Follow Up: Dallin Ashton MD [Primary Care Provider] - Disposition Disposition (needs filled in before D/C Order can be placed): Home, Self Care
--- NOTE | 2023-03-26 08:26 | PCM.OPRPT ---
Report of Operation Date of Procedure: 03/26/23 Pre-Operative Diagnosis: Overactive bladder Post-Operative Diagnosis: Same Surgery/Procedure Performed:: Cystoscopy, Botox 100 unit injection Surgeon: Estela Henson Type of Anesthesia: MAC Special Medications: Botox 100 units Specimen's removed: None Description of Procedure: The patient is a 62-year-old female with refractory overactive bladder who presents for cystoscopy with injection of 100 units of Botox. Informed consent has been obtained. The patient was taken to the operating room and placed on the operating room table. Anesthesia monitored the head, neck, airway, IV access and vital signs throughout the case. Once anesthesia was appropriately administered, the patient was placed into dorsolithotomy position was prepped and draped in usual sterile fashion. The cystoscope was inserted through the urethra under direct visualization into the urinary bladder. The bladder mucosa was visualized in its entirety and there were no abnormalities identified. A total of 21 injections in systematic were made across the bladder, each with 0.5 cc of the Botox solution followed by a 1 cc injection of injectable sterile saline. The patient's bladder was then emptied and the cystoscope was removed. The procedure was terminated, and there were no complications. The patient was awakened and taken to the recovery room in good condition. Complications None Admit VTE Documentation VTE Present on Admission: Yes VTE Mechan Device Prophylaxis: SCD's VTE Pharm Prophylaxis ordered?: No Reason prophylaxis not ordered:: Treatment Not Indicated
[2023-03-26] MEDS: Cefazolin 2 GM in 0.9% Normal Saline 100 ML IV (08:27)
[2023-03-26] MEDS: 0.9% Saline Lock 10 ML Syringe IV (08:37)
[2023-03-26] MEDS: Botulinum Toxin A 100 Units Vial IJ (08:37)
[2023-03-26] MEDS: 0.9% Normal Saline (Pres. free 10 ML Vial (08:37)
== END 2023-03-26 09:50 | disposition home or self-care (01) ==
LOC: SDC 07:32 → AC 07:33
PROVIDERS: PCP Family Medicine; Referring Provider Urology; Visit Provider Urology
PROC: 3E0K8GC Introduction of Other Therapeutic Substance into Genitourinary Tract, Via Natural or Artificial Opening Endoscopic (ICD-10-PCS; CPT 52287; principal; 2023-03-26 08:45)
DX: N32.81 Overactive bladder (principal); E11.9 Type 2 diabetes mellitus without complications; I10 Essential (primary) hypertension; N39.46 Mixed incontinence; R35.1 Nocturia; N95.2 Postmenopausal atrophic vaginitis; Z79.84 Long term (current) use of oral hypoglycemic drugs; Z79.899 Other long term (current) drug therapy; Z78.0 Asymptomatic menopausal state
CPT/HCPCS: 52287; 00910; 82962; J7120; A4216; J0585; J2405; J3490

== ENCOUNTER 2025-02-09 05:56 | Day surgery (SDC) | payer MEDICARE, MEDICAID, SELFPAY ==
--- NOTE | 2025-02-02 10:00 | PAT.ANESEVAL ---
Pre-Assessment Diagnosis/Proposed Procedure Planned Operative Procedure(s): CYSTO BOTOX INJECTION Anesthesia History Anesthesia History - nurse consultant: Anesthesia History - nurse consultant Hx Hospitalization No 02/02/25 09:21 Any Problems With Anesthesia No 02/02/25 09:21 Cholinesterase deficiency No 02/02/25 09:21 You/Your Family Experience No 02/02/25 09:21 fever (hyperthermia) with Relationship Recent Exposure to Contagious No 03/26/23 07:57 Disease Does patient have nerve No 02/02/25 09:21 stimulator Patient instructed to have device shut off --Does patient have Pacemaker or ICD? When Was Last Pacemaker Check QUESTION #4 FULL TEXT: You/Your Family Experience fever (hyperthermia) with Anesthesia Last Oral Intake Last Oral intake: Last Oral Intake NPO since Meds taken in AM with sips of water? Meds patient instructed to take am of surgery PONV PONV - nurse consultant: PONV - nurse consultant Female Yes 02/02/25 09:21 HX of Motion Sickness Yes 02/02/25 09:21 HX of N/V After Surgery No 02/02/25 09:21 Non-Smoker Yes 02/02/25 09:21 Duration of Surgery greater No 02/02/25 09:21 than 60 minutes Number of Risk Factors 3 02/02/25 09:21 PONV Score Moderate Risk 02/02/25 09:21 Height & Weight Height & Weight: Anesthesia: Height & Weight Height 5 ft 2 in 03/26/23 07:57 Respiratory Assessment Respiratory Assessment - nurse consultant: Respiratory Tract Infection Hx - nurse consultant Hx Respiratory Tract Infection No 02/02/25 09:21 STOP Sleep Apnea STOP Sleep Apnea - nurse consultant: STOP Sleep Apnea - nurse consultant Hx Hypertension Yes: CONTROLLED WITH MEDS 02/02/25 09:21 Hx Sleep Apnea No 02/02/25 09:21 CPAP BIPAP Do you snore loudly (louder Yes 02/02/25 09:21 than talking or can be heard Do you often feel tired/ Yes 02/02/25 09:21 fatigued/ sleepy during daytime? Has anyone observed you stop Yes 02/02/25 09:21 breathing during sleep? STOP Results Positive 02/02/25 09:21 QUESTION #5 FULL TEXT : Do you snore loudly (louder than talking or can be heard through closed doors)? Tobacco Use History Tobacco Use History - nurse consultant: Tobacco Use History - nurse consultant Tobacco Use Smoking Status Never smoker 02/02/25 09:21 Hx Tobacco Use No 02/02/25 09:21 Years Smoking Packs Smoked per Day Smoking Cessation Date was within the last 15 years Hx Smoking Cessation Date Hx Smoking Cessation Counseling Hematologic Medial History Hematologic Hx - nurse consultant: Hematologic Medical Hx - red leader Hx of Blood Transfusion No 02/02/25 09:21 Hx of Transfusion in last 3 No 02/02/25 09:21 Months Date of Last Transfusion (if within last 3 months) Ever experience any problems No 02/02/25 09:21 with transfusion(s)? Specify any problems Hx of Preganancy in last 3 No 02/02/25 09:21 Months Nurse Filling Out Transfusion DSCHRIBER 02/02/25 09:21 & Questions: Date: 02/02/25 02/02/25 09:21 Time: 09:21 02/02/25 09:21 Patient unable to answer at this time (ie. confused, unrespo /Reproduction History /Reproductive History - nurse consultant: /Reproductive Hx- nurse consultant Hx Now No 02/02/25 09:21 Gestational Age (in weeks): EDC: Hx Hx Para Hx Section SAB No 02/02/25 09:21 PFSH Medical History Depression Shortness of breath on exertion Leg cramps History of pain when walking History of edema Wears glasses Post-menopausal Cancer High cholesterol Migraine headache Bulging discs Difficulty swallowing History of hiatal hernia GERD (gastroesophageal reflux disease) Non-smoker History of echocardiogram History of stress test Cardiology follow-up encounter SVT (supraventricular tachycardia) Spinal stenosis Vertigo Arthritis Hypertension Diabetes Home Medications ?Medication ?Instructions ?Recorded ?Last Taken ?Type baclofen 10 mg tablet 10 mg PO TID PRN Muscle Spasm 06/14/20 Unknown History lisinopril 40 mg tablet 40 mg PO DAILY 06/14/20 07/31/20 History metformin 500 mg tablet 500 mg PO DAILY 06/14/20 07/30/20 History diltiazem HCl 180 mg 180 mg PO DAILY 07/03/20 07/31/20 History capsule,extended release 24 hr aspirin 81 mg capsule 81 mg PO DAILY 03/19/23 01/29/25 History cholecalciferol (vitamin D3) 125 125 mcg PO DAILY 03/19/23 Unknown History mcg (5,000 unit) tablet (Vitamin D3) metoprolol succinate 25 mg 12.5 mg PO QHS 03/19/23 03/25/23 History tablet,extended release 24 hr [id number] ac 400 1 tab PO QHS 03/19/23 Unknown History mcg-calcium carb 500 mg-vit K1 20 mcg tablet (Women's 50 Plus Daily Formula) tamoxifen 20 mg tablet 20 mg PO DAILY 03/19/23 Unknown History famotidine 20 mg tablet 20 mg PO BID 01/06/25 Unknown History gabapentin 600 mg tablet 600 mg PO TID 01/06/25 Unknown History hydrochlorothiazide 12.5 mg tablet 12.5 mg PO DAILY 01/06/25 Unknown History vonoprazan 20 mg tablet (Voquezna) 20 mg PO DAILY GERD 01/06/25 Unknown History Allergy/AdvReac Type Severity Reaction Status Date / Time methylprednisolone AdvReac Intermediate Rash Verified 02/02/25 09:17 Surgical History History of esophagogastroduodenoscopy (EGD) Hx of colonoscopy History of Hx laparoscopic cholecystectomy Hx of total knee arthroplasty Hx of hand surgery History of lumpectomy History of hand surgery H/O: hysterectomy Social History (Updated 09/28/20 @ 11:[address] Keegan Caballero, DO) Smoking Status: Never smoker Audit: Pertinent Findings Pertinent Findings EKG Perinent findings: July 10, 2020. Normal sinus rhythm. Stress test pertinent findings: 07/15/2021. Normal SPECT perfusion study. No evidence for ischemia. No evidence for scar. Ejection fraction 72%. Echo (EF%) pertinent findings: January 12, 2025. Ejection fraction is 59%. June 24, 2021. Ejection fraction is 70%. No significant valvular abnormalities. Consult pertinent findings: September 15, 2022. Dr. Abbott. 1. SVT-doing well-continue metoprolol XL and diltiazem. 2. Palpitations-symptoms are consistent with frequent PVCs. No symptoms concerning for atrial fibrillation. 3. Hypertension-borderline control. 4. Fatigue-patient had a normal stress test and echocardiogram completed in 2020. Recommendation Anesthesia Recommendation Anesthesia recommendation: OPTIMIZED for anesthesia
[2025-02-09] VITALS (7 sets, daily range): BP systolic 118–150; BP diastolic 61–78; PULSE 63–69; RESP 16; TEMP 36.3–36.8; O2SAT 94–100; BMI 41.5
--- NOTE | 2025-02-09 07:11 | PRE.ANES_ITS ---
ASA Classification* ASA Classification ASA Classification: 3 Assessment & Plan Anesthesia* Anesthesia Assessment Anesthesia Assessment: Discussed sedation and/or anesthesia options, risks, benefits, and alternatives with patient/parents/legal guardian/POA. Questions invited. The patient/parents/legal guardian/POA seems to understand and agrees to proceed with anesthesia plan. Reviewed the physical assessment, medical history, allergy history and patient home medications list prior to surgery/procedure/anesthetic and documented any changes. Performed airway and anesthesia risk assessments. Anesthesia Type Anesthesia Type: MAC History Source History Obtained from:: Patient and Chart Anesthesia Focused Assessment* Temperature: 98.2 F Pulse Rate: 65 Blood Pressure: 150/78 Respiratory Rate: 16 Pulse Ox: 100 Oxygen Delivery Method: Room Air Airway Assessment Mouth opens: >3 cm Mallampati Score: II Teeth Condition: Intact Neck Range of motion (ROM): Full ROM Focused Labs Anesthesia Preop lab: CBC WBC 10.1 K/mm3 (4.4-11.0) 08/01/20 04:52 08/01/20 RBC 3.90 M/mm3 (4.2-5.4) L 08/01/20 04:52 08/01/20 Hgb 11.6 g/dL (12.0-15.0) L 08/01/20 04:52 0 Hct 37.1 % (37-47) 08/01/20 04:52 08/01/20 Plt Count 468 K/mm3 (150-450) H 08/01/20 04:52 08/01/20 CHEMISTRY Potassium 4.0 mmol/L (3.5-5.1) 08/01/20 04:52 08/01/20 Sodium 136 mmol/L (136-145) 08/01/20 04:52 08/01/20 Magnesium 2.3 mg/dL (1.6-2.6) 07/10/20 09:06 07/10/20 BUN 10 mg/dL (7-18) 08/01/20 04:52 08/01/20 Creatinine 0.82 mg/dL (0.55-1.02) 08/01/20 04:52 08/01/20 Glucose 144 mg/dL (74-106) H 08/01/20 04:52 08/01/20 POC Glucose 99 mg/dL (74-106) 03/26/23 07:48 03/26/23 COAG PT 12.0 SECONDS (11.7-14.9) 07/10/20 09:08 Pre-Assessment Diagnosis/Proposed Procedure Planned Operative Procedure(s): CYSTO BOTOX INJECTION Anesthesia History Anesthesia History - exhibition carver: Anesthesia History - exhibition carver Hx Hospitalization No 02/02/25 09:21 Any Problems With Anesthesia No 02/02/25 09:21 Cholinesterase deficiency No 02/02/25 09:21 You/Your Family Experience No 02/02/25 09:21 fever (hyperthermia) with Relationship Recent Exposure to Contagious No 02/09/25 06:30 Disease Does patient have nerve No 02/02/25 09:21 stimulator Patient instructed to have device shut off --Does patient have Pacemaker No 02/09/25 06:30 or ICD? When Was Last Pacemaker Check QUESTION #4 FULL TEXT: You/Your Family Experience fever (hyperthermia) with Anesthesia Last Oral Intake Last Oral intake: Last Oral Intake NPO since 00:00 02/09/25 06:30 Meds taken in AM with sips of water? Meds patient instructed to take am of surgery PONV PONV - exhibition carver: PONV - exhibition carver Female Yes 02/02/25 09:21 HX of Motion Sickness Yes 02/02/25 09:21 HX of N/V After Surgery No 02/02/25 09:21 Non-Smoker Yes 02/02/25 09:21 Duration of Surgery greater No 02/02/25 09:21 than 60 minutes Number of Risk Factors 3 02/02/25 09:21 PONV Score Moderate Risk 02/02/25 09:21 Height & Weight Height & Weight: Anesthesia: Height & Weight Height 5 ft 2 in 02/09/25 06:30 Weight: 103 kg 02/09/25 06:30 Body Mass Index (BMI) 41.5 02/09/25 06:30 Respiratory Assessment Respiratory Assessment - exhibition carver: Respiratory Tract Infection Hx - exhibition carver Hx Respiratory Tract Infection No 02/02/25 09:21 STOP Sleep Apnea STOP Sleep Apnea - exhibition carver: STOP Sleep Apnea - exhibition carver Hx Hypertension Yes: CONTROLLED WITH MEDS 02/02/25 09:21 Hx Sleep Apnea No 02/02/25 09:21 CPAP BIPAP Do you snore loudly (louder Yes 02/02/25 09:21 than talking or can be heard Do you often feel tired/ Yes 02/02/25 09:21 fatigued/ sleepy during daytime? Has anyone observed you stop Yes 02/02/25 09:21 breathing during sleep? STOP Results Positive 02/02/25 09:21 QUESTION #5 FULL TEXT : Do you snore loudly (louder than talking or can be heard through closed doors)? Tobacco Use History Tobacco Use History - exhibition carver: Tobacco Use History - exhibition carver Tobacco Use Smoking Status Never smoker 02/02/25 09:21 Hx Tobacco Use No 02/02/25 09:21 Years Smoking Packs Smoked per Day Smoking Cessation Date was within the last 15 years Hx Smoking Cessation Date Hx Smoking Cessation Counseling Hematologic Medial History Hematologic Hx - exhibition carver: Hematologic Medical Hx - clinical assessment manager Hx of Blood Transfusion No 02/02/25 09:21 Hx of Transfusion in last 3 No 02/02/25 09:21 Months Date of Last Transfusion (if within last 3 months) Ever experience any problems No 02/02/25 09:21 with transfusion(s)? Specify any problems Hx of Preganancy in last 3 No 02/02/25 09:21 Months Nurse Filling Out Transfusion DSCHRIBER 02/02/25 09:21 & Questions: Date: 02/02/25 02/02/25 09:21 Time: 09:21 02/02/25 09:21 Patient unable to answer at this time (ie. confused, unrespo /Reproduction History /Reproductive History - exhibition carver: /Reproductive Hx- exhibition carver Hx Now No 02/02/25 09:21 Gestational Age (in weeks): EDC: Hx Hx Para Hx Section SAB No 02/02/25 09:21 Active Medications Active Medications: Current Medications Generic Name Dose Route Start Last Admin Trade Name Freq PRN Reason Stop Dose Admin Cefazolin Sodium 2 gm/ Sodium 110 mls @ 150 mls/hr 02/09/25 07:30 Chloride IV 02/09/25 08:13 INTRAOP ONE Lactated Ringer's 1,000 mls @ 15 mls/hr 02/09/25 06:15 IV .Q48H MONICA PFSH Medical History Depression Shortness of breath on exertion Leg cramps History of pain when walking History of edema Wears glasses Post-menopausal Cancer High cholesterol Migraine headache Bulging discs Difficulty swallowing History of hiatal hernia GERD (gastroesophageal reflux disease) Non-smoker History of echocardiogram History of stress test Cardiology follow-up encounter SVT (supraventricular tachycardia) Spinal stenosis Vertigo Arthritis Hypertension Diabetes Home Medications ?Medication ?Instructions ?Recorded ?Last Taken ?Type baclofen 10 mg tablet 10 mg PO TID PRN Muscle Spas m 06/14/20 Unknown History lisinopril 40 mg tablet 40 mg PO DAILY 06/14/2007/13 History metformin 500 mg tablet 500 mg PO DAILY 06/14/20 History diltiazem HCl 180 mg 180 mg PO DAILY 07/03/2011/05 History capsule,extended release 24 hr aspirin 81 mg capsule 81 mg PO DAILY 03/19/2301/11 History cholecalciferol (vitamin D3) 125 125 mcg PO DAILY 06/03 Unknown History mcg (5,000 unit) tablet (Vitamin D3) metoprolol succinate 25 mg 12.5 mg PO QHS 03/19/23 22:00 History tablet,extended release 24 hr kklmmsjy-obn-bvnzg ac 400 1 tab PO QHS 03/19/23 Unknow n History mcg-calcium carb 500 mg-vit K1 20 mcg tablet (Women's 50 Plus Daily Formula) tamoxifen 20 mg tablet 20 mg PO DAILY 03/19/2311/05 History famotidine 20 mg tablet 20 mg PO BID 01/06/25 Unknow n History gabapentin 600 mg tablet 600 mg PO TID 01/06/25 Unkno wn History hydrochlorothiazide 12.5 mg tablet 12.5 mg PO DAILY Unknown History vonoprazan 20 mg tablet (Voquezna) 20 mg PO DAILY GERD 01/06/25 02/09/25 History Allergy/AdvReac Type Severity Reaction Status Date / Time methylprednisolone AdvReac Intermediate Rash Verified 02/09/25 06:27 Surgical History History of esophagogastroduodenoscopy (EGD) Hx of colonoscopy History of Hx laparoscopic cholecystectomy Hx of total knee arthroplasty Hx of hand surgery History of lumpectomy History of hand surgery H/O: hysterectomy Social History (Updated 09/28/20 @ 11:[address] Keegan Caballero DO) Smoking Status: Never smoker Review of Systems (Anesthesia) ROS Narrative System reviewed and no additional complaints, except as documented.
[2025-02-09] MEDS: 0.9% Normal Saline (Pres. free 10 ML Vial (07:30)
[2025-02-09] MEDS: Cefazolin 2 GM in 0.9% Normal Saline (100mL Bag) 100 ML IV (07:30)
[2025-02-09] MEDS: Botulinum Toxin A 100 Units Vial IJ (07:48)
--- NOTE | 2025-02-09 08:00 | DCINST_ITS ---
Discharge Instructions Diet Discharge Diet: No restrictions Activity Discharge Activity: Return to Normal Activity Dressing / Incision Call your doctor if your incision/area has: Increased Pain/ Swelling Call your doctor if you observe: Fever of 101 or Higher, Inability to urinate and Inability to have a bowel movement Additional Dressing/Incision Instructions:: urine with blood clots, please call Follow Up Care Please Follow Up With: Estela Henson MD When: The office will call to make a follow-up appointment for 1 to 2 weeks. Test Results: Test results from this visit will be discussed in further detail at your follow- up appointment, if applicable. Discharge Plan Admission Attending Provider: Estela Henson Primary Care Provider: Dallin Ashton Instructions Print Language: Marshallese Discharge Orders/Prescriptions Prescriptions: New cephalexin 500 mg capsule 500 mg PO Q12 3 Days Qty: 6 0RF Continued metformin 500 mg tablet 500 mg PO DAILY lisinopril 40 mg tablet 40 mg PO DAILY baclofen 10 mg tablet 10 mg PO TID PRN (Reason: Muscle Spasm) diltiazem HCl 180 MG capsule,extended release 24hr 180 mg PO DAILY metoprolol succinate 25 mg tablet extended release 24 hr 12.5 mg PO QHS Patient Comments: TAKE 1/2 (ONE-HALF) TABLET BY MOUTH ONCE DAILY tamoxifen 20 mg tablet 20 mg PO DAILY Patient Comments: TAKE 1 TABLET BY MOUTH ONCE DAILY cholecalciferol (vitamin D3) [Vitamin D3] 125 mcg (5,000 unit) Tablet 125 mcg PO DAILY Women's 50 Plus Daily Formula 400 mcg-500 mg calcium-20 mcg Tablet 1 tab PO QHS aspirin 81 mg Capsule 81 mg PO DAILY Voquezna 20 mg tablet 20 mg PO DAILY hydrochlorothiazide 12.5 mg tablet 12.5 mg PO DAILY famotidine 20 mg tablet 20 mg PO BID gabapentin 600 mg tablet 600 mg PO TID Referrals / Follow Up: Dallin Ashton MD [Primary Care Provider] - Disposition Disposition (needs filled in before D/C Order can be placed): Home, Self Care
--- NOTE | 2025-02-09 08:01 | PCM.POST.ANE ---
Anesthesia: Postop Eval I Current Vital Signs Temperature: 97.4 F Pulse Rate: 63 Blood Pressure: 121/73 Respiratory Rate: 16 Pulse Ox: 95 Oxygen Delivery Method: Room Air Assessment Airway patent: Yes Spontaneous unlabored respirations: Yes Mental status: Awake and Calm nausea: No Vomiting: No Anesthesia Complication: No Fluid Hydration Crystalloid volume administer (ml): 600 Total IV fluid infused: 600 Progress Note Anesthesia document: Postop Eval 1 completed: Yes
[2025-02-09 09:20] LABS: Bedside Glucose 113 mg/dL (74-106)
--- NOTE | 2025-02-09 10:35 | PCM.OPRPT ---
Operative Report (Standard) Operative Information Date of Procedure: 02/09/25 Pre-Operative Diagnosis: Overactive bladder Post-Operative Diagnosis: Same Surgery/Procedure Performed: Cystoscopy with Botox 100 unit injection elevator installer apprentice: No Type of Anesthesia: MAC RN Documented Start/Stop Times: Operation Date: 02/09/25 07:30 Case Time Into Pre-Op 02/09/25 06:01 Out of Pre-Op 02/09/25 07:24 Anesthesia Start 02/09/25 07:26 Into Room 02/09/25 07:26 Procedure Start 02/09/25 07:46 Procedure End 02/09/25 07:51 Anesthesia End 02/09/25 07:55 Out of Room 02/09/25 07:55 Into Recovery 02/09/25 07:58 Out of Recovery 02/09/25 08:10 Into Phase II Recovery 02/09/25 08:12 Out of Phase II 02/09/25 08:50 Procedure Start Time: 07:46 Procedure Stop Time: 07:51 Select all DRAINS/GRAFTS/IMPLANTS that apply: None Estimated Blood Loss: <5cc Specimen collected: No Description of surgery: The patient is a 64-year-old female with overactive bladder here for injection of Botox 100 units. Informed consent was obtained. The patient was taken to the operating room and placed on the operating room table. Anesthesia monitored the head, neck, airway, IV access and vital signs throughout the case. Once anesthesia was appropriate ministered she was placed into dorsolithotomy position was prepped and draped in usual sterile fashion. The cystoscope was inserted through the urethra and into the urinary bladder under direct visualization revealing no evidence of mass, erythema, ulceration or foreign body. The Botox was injected in increments of 0.5 cc with a total of 20 injections. This was done in systematic fashion throughout the urinary bladder. She tolerated this well. The bladder was then emptied and the cystoscope was removed. She was awakened and taken to the recovery room in good condition. There were no complications during this procedure. Surgical Findings: No new findings Complications Complications: No Admit VTE Documentation VTE Present on Admission: Yes VTE Mechan Device Prophylaxis: SCD's VTE Pharm Prophylaxis ordered?: No Reason prophylaxis not ordered: Treatment Not Indicated
--- NOTE | 2025-02-09 15:17 | POSTOPAN2_ITS ---
Anesthesia Postop Eval I Sum Postop Eval Completion status Anesthesia document: Postop Eval 1 completed: Yes Anesthesia Postop Eval I Summary Anesthesia Postop Eval I Summary: Anesthesia Postop Eval I: Assessment Summary Airway patent Yes 02/09/25 08:02 [email or web address] [email or web address] Spontaneous unlabored Yes 02/09/25 08:02 [email or web address] [email or web address] respirations Mental status Awake,Calm 02/09/25 08:02 [email or web address] [email or web address] nausea No 02/09/25 08:02 GREENHOUSE [email or web address] Vomiting No 02/09/25 08:02 [email or web address] [email or web address] Anesthesia Postop Eval I: Fluid Summary Crystalloid volume administer 600 02/09/25 08:02 GREENHOUSE [email or web address] (ml) Colloids volume administered ( ml) Blood Product volume administered (ml) Total IV fluid infused 600 02/09/25 08:02 [email or web address] [email or web address] Anesthesia Postop Eval I: Summary Notes Anesthesia Complication No 02/09/25 08:02 [email or web address] [email or web address] Anesthesia Complication Comment: Post-operative progress note Anesthesia: Postop Eval II Evaluation Mental status: Awake and Calm Pain Level: 1 nausea: No Vomiting: No Complications Anesthesia Complication: No
--- NOTE | 2025-02-09 15:17 | PCM.POSTANE2 ---
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 Spontaneous unlabored Yes 02/09/25 08:02 SPECIAL DAY [email or web address] respirations Mental status Awake,Calm 02/09/25 08:02 SPECIAL DAY CLASS [email or web address] nausea No 02/09/25 08:02 SPECIAL DAY CLASS [email or web address] Vomiting No 02/09/25 08:02 SPECIAL DAY CLASS [email or web address] Anesthesia Postop Eval I: Fluid Summary Crystalloid volume administer 600 02/09/25 08:02 SPECIAL DAY CLASS [email or web address] (ml) Colloids volume administered ( ml) Blood Product volume administered (ml) Total IV fluid infused 600 02/09/25 08:02 SPECIAL DAY CLASS [email or web address] Anesthesia Postop Eval I: Summary Notes Anesthesia Complication No 02/09/25 08:02 SPECIAL DAY CLASS [email or web address] Anesthesia Complication Comment: Post-operative progress note Anesthesia: Postop Eval II Evaluation Mental status: Awake and Calm Pain Level: 1 nausea: No Vomiting: No Complications Anesthesia Complication: No
== END 2025-02-09 08:50 | disposition home or self-care (01) ==
LOC: SDC 05:56 → AC 05:57
PROVIDERS: PCP Family Medicine; Referring Provider Urology; Visit Provider Urology
PROC: 3E0K8GC Introduction of Other Therapeutic Substance into Genitourinary Tract, Via Natural or Artificial Opening Endoscopic (ICD-10-PCS; CPT 52287; principal; 2025-02-09 07:20)
DX: N32.81 Overactive bladder (principal); E11.9 Type 2 diabetes mellitus without complications; I10 Essential (primary) hypertension; R35.1 Nocturia; N39.46 Mixed incontinence; N95.2 Postmenopausal atrophic vaginitis; D17.71 Benign lipomatous neoplasm of kidney; Z85.3 Personal history of malignant neoplasm of breast; Z79.82 Long term (current) use of aspirin; Z79.84 Long term (current) use of oral hypoglycemic drugs; Z79.899 Other long term (current) drug therapy
CPT/HCPCS: 52287; 00910; 82962; J0585; J2405

== ENCOUNTER 2025-03-03 10:20 | Day surgery (SDC) | payer MEDICARE, MEDICAID, SELFPAY ==
--- NOTE | 2025-03-02 10:27 | PAT.ANE_ITS ---
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 When Was Last Pacemaker Check QUESTION #4 FULL TEXT: You/Your Family Experience fever (hyperthermia) with Anesthesia Last Oral Intake Last Oral intake: Last Oral Intake NPO since Meds taken in AM with sips of water? Meds patient instructed to take am of surgery PONV PONV - electronic maintenance supervisor: PONV - electronic maintenance supervisor Female Yes 03/02/25 10:14 HX of Motion Sickness Yes 03/02/25 10:14 HX of N/V After Surgery No 03/02/25 10:14 Non-Smoker Yes 03/02/25 10:14 Duration of Surgery greater No 03/02/25 10:14 than 60 minutes Number of Risk Factors 3 03/02/25 10:14 PONV Score Moderate Risk 03/02/25 10:14 Height & Weight Height & Weight: Anesthesia: Height & Weight Height 5 ft 2 in 02/09/25 06:30 Respiratory Assessment Respiratory Assessment - electronic maintenance supervisor: Respiratory Tract Infection Hx - electronic maintenance supervisor Hx Respiratory Tract Infection No 03/02/25 10:14 STOP Sleep Apnea STOP Sleep Apnea - electronic maintenance supervisor: STOP Sleep Apnea - electronic maintenance supervisor Hx Hypertension Yes: CONTROLLED WITH MED 03/02/25 10:14 Hx Sleep Apnea No 03/02/25 10:14 CPAP BIPAP Do you snore loudly (louder No 03/02/25 10:14 than talking or can be heard Do you often feel tired/ No 03/02/25 10:14 fatigued/ sleepy during daytime? Has anyone observed you stop No 03/02/25 10:14 breathing during sleep? STOP Results Negative 03/02/25 10:14 QUESTION #5 FULL TEXT : Do you snore loudly (louder than talking or can be heard through closed doors)? 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 Specify any problems Hx of Preganancy in last 3 N/A 03/02/25 10:14 Months Nurse Filling Out Transfusion NBUCHER 03/02/25 10:14 & Questions: Date: 03/02/25 03/02/25 10:14 Time: 10:15 03/02/25 10:14 Patient unable to answer at this time (ie. confused, unrespo /Reproduction History /Reproductive History - electronic maintenance supervisor: /Reproductive Hx- electronic maintenance supervisor Hx Now No 03/02/25 10:14 Gestational Age (in weeks): EDC: Hx Hx Para Hx Section SAB No 03/02/25 10:14 PFS Medical History Depression Shortness of breath on exertion Leg cramps History of pain when walking History of edema Wears glasses Post-menopausal Cancer High cholesterol Migraine headache Bulging discs Difficulty swallowing History of hiatal hernia GERD (gastroesophageal reflux disease) Non-smoker History of echocardiogram History of stress test Cardiology follow-up encounter SVT (supraventricular tachycardia) Spinal stenosis Vertigo Arthritis Hypertension Diabetes Home Medications ?Medication ?Instructions ?Recorded ?Last Taken ?Type baclofen 10 mg tablet 10 mg PO TID PRN Muscle Spas m 06/14/20 Unknown History lisinopril 40 mg tablet 40 mg PO DAILY 06/14/2007/13 History metformin 500 mg tablet 500 mg PO DAILY 06/14/20 History diltiazem HCl 180 mg 180 mg PO DAILY 07/03/2011/05 History capsule,extended release 24 hr aspirin 81 mg capsule 81 mg PO DAILY 03/19/2301/1125 History cholecalciferol (vitamin D3) 125 125 mcg PO DAILY 06/03 Unknown History mcg (5,000 unit) tablet (Vitamin D3) metoprolol succinate 25 mg 12.5 mg PO QHS 03/19/23 22:00 History tablet,extended release 24 hr ozdxvtpr-rnn-apryx ac 400 1 tab PO QHS 03/19/23 Unknow n History mcg-calcium carb 500 mg-vit K1 20 mcg tablet (Women's 50 Plus Daily Formula) tamoxifen 20 mg tablet 20 mg PO DAILY 03/19/2311/05 History famotidine 20 mg tablet 20 mg PO BID 01/06/25 Unknow n History gabapentin 600 mg tablet 600 mg PO TID 01/06/25 Unkno wn History hydrochlorothiazide 12.5 mg tablet 12.5 mg PO DAILY Unknown History vonoprazan 20 mg tablet (Voquezna) 20 mg PO DAILY GERD 01/06/25 02/09/25 History MAGIC MOUTH WASH (BMX) 180 mL 10 ml PO BID PRN reflux with 02/23/25 Unknown Rx suspension epigastric pain #180 mL Allergy/AdvReac Type Severity Reaction Status Date / Time methylprednisolone AdvReac Intermediate Rash Verified 03/02/25 10:12 Surgical History History of esophagogastroduodenoscopy (EGD) Hx of colonoscopy History of Hx laparoscopic cholecystectomy Hx of total knee arthroplasty Hx of hand surgery History of lumpectomy History of hand surgery H/O: hysterectomy Social History Smoking Status: Never smoker alcohol intake: never substance use type: does not use Audit: Pertinent Findings Pertinent Findings EKG Perinent findings: 07/10/2020. Normal sinus rhythm 61 bpm. Normal EKG. Recommendation Anesthesia Recommendation Anesthesia recommendation: OPTIMIZED for anesthesia
--- NOTE | 2025-03-03 10:29 | PCM.PRE.AN2 ---
ASA Classification* ASA Classification ASA Classification: 2 Assessment & Plan Anesthesia* Anesthesia Assessment Anesthesia Assessment: Discussed sedation and/or anesthesia options, risks, benefits, and alternatives with patient/parents/legal guardian/POA. Questions invited. The patient/parents/legal guardian/POA seems to understand and agrees to proceed with anesthesia plan. Reviewed the physical assessment, medical history, allergy history and patient home medications list prior to surgery/procedure/anesthetic and documented any changes. Performed airway and anesthesia risk assessments. Anesthesia Type Anesthesia Type: MAC Anesthesia Focused Assessment* Airway Assessment Mouth opens: >3 cm Mallampati Score: II Focused Labs Anesthesia Preop lab: CBC WBC 10.1 K/mm3 (4.4-11.0) 08/01/20 04:52 08/01/20 RBC 3.90 M/mm3 (4.2-5.4) L 08/01/20 04:52 08/01/20 Hgb 11.6 g/dL (12.0-15.0) L 08/01/20 04:52 08/01/20 Hct 37.1 % (37-47) 08/01/20 04:52 08/01/20 Plt Count 468 K/mm3 (150-450) H 08/01/20 04:52 08/01/20 CHEMISTRY Potassium 4.0 mmol/L (3.5-5.1) 08/01/20 04:52 08/01/20 Sodium 136 mmol/L (136-145) 08/01/20 04:52 08/01/20 Magnesium 2.3 mg/dL (1.6-2.6) 07/10/20 09:06 07/10/20 BUN 10 mg/dL (7-18) 08/01/20 04:52 08/01/20 Creatinine 0.82 mg/dL (0.55-1.02) 08/01/20 04:52 08/01/20 Glucose 144 mg/dL (74-106) H 08/01/20 04:52 08/01/20 POC Glucose 113 mg/dL (74-106) H 02/09/25 06:22 02/09/25 COAG PT 12.0 SECONDS (11.7-14.9) 07/10/20 09:08 07/10/20 Pre-Assessment Diagnosis/Proposed Procedure Planned Operative Procedure(s): EGD Anesthesia History Anesthesia History - manager implementation: Anesthesia History - manager implementation Hx Hospitalization No 03/02/25 10:14 Any Problems With Anesthesia No 03/02/25 10:14 Cholinesterase deficiency No 03/02/25 10:14 You/Your Family Experience No 03/02/25 10:14 fever (hyperthermia) with Relationship Recent Exposure to Contagious No 02/09/25 06:30 Disease Does patient have nerve No 03/02/25 10:14 stimulator Patient instructed to have device shut off --Does patient have Pacemaker or ICD? When Was Last Pacemaker Check QUESTION #4 FULL TEXT: You/Your Family Experience fever (hyperthermia) with Anesthesia Last Oral Intake Last Oral intake: Last Oral Intake NPO since Meds taken in AM with sips of water? Meds patient instructed to take am of surgery PONV PONV - manager implementation: PONV - manager implementation Female Yes 03/02/25 10:14 HX of Motion Sickness Yes 03/02/25 10:14 HX of N/V After Surgery No 03/02/25 10:14 Non-Smoker Yes 03/02/25 10:14 Duration of Surgery greater No 03/02/25 10:14 than 60 minutes Number of Risk Factors 3 03/02/25 10:14 PONV Score Moderate Risk 03/02/25 10:14 Height & Weight Height & Weight: Anesthesia: Height & Weight Height 5 ft 2 in 02/09/25 06:30 Respiratory Assessment Respiratory Assessment - manager implementation: Respiratory Tract Infection Hx - manager implementation Hx Respiratory Tract Infection No 03/02/25 10:14 STOP Sleep Apnea STOP Sleep Apnea - manager implementation: STOP Sleep Apnea - manager implementation Hx Hypertension Yes: CONTROLLED WITH MED 03/02/25 10:14 Hx Sleep Apnea No 03/02/25 10:14 CPAP BIPAP Do you snore loudly (louder No 03/02/25 10:14 than talking or can be heard Do you often feel tired/ No 03/02/25 10:14 fatigued/ sleepy during daytime? Has anyone observed you stop No 03/02/25 10:14 breathing during sleep? STOP Results Negative 03/02/25 10:14 QUESTION #5 FULL TEXT : Do you snore loudly (louder than talking or can be heard through closed doors)? 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 Specify any problems Hx of Preganancy in last 3 N/A 03/02/25 10:14 Months Nurse Filling Out Transfusion NBUCHER 03/02/25 10:14 & Questions: Date: 03/02/25 03/02/25 10:14 Time: 10:15 03/02/25 10:14 Patient unable to answer at this time (ie. confused, unrespo /Reproduction History /Reproductive History - manager implementation: /Reproductive Hx- manager implementation Hx Now No 03/02/25 10:14 Gestational Age (in weeks): EDC: Hx Hx Para Hx Section SAB No 03/02/25 10:14 PFSH Medical History Depression Shortness of breath on exertion Leg cramps History of pain when walking History of edema Wears glasses Post-menopausal Cancer High cholesterol Migraine headache Bulging discs Difficulty swallowing History of hiatal hernia GERD (gastroesophageal reflux disease) Non-smoker History of echocardiogram History of stress test Cardiology follow-up encounter SVT (supraventricular tachycardia) Spinal stenosis Vertigo Arthritis Hypertension Diabetes Home Medications ?Medication ?Instructions ?Recorded ?Last Taken ?Type baclofen 10 mg tablet 10 mg PO TID PRN Muscle Spasm 06/14/20 Unknown History lisinopril 40 mg tablet 40 mg PO DAILY 06/14/20 07/31/20 History metformin 500 mg tablet 500 mg PO DAILY 06/14/20 07/30/20 History diltiazem HCl 180 mg 180 mg PO DAILY 07/03/20 02/09/25 History capsule,extended release 24 hr aspirin 81 mg capsule 81 mg PO DAILY 03/19/23 01/29/25 History cholecalciferol (vitamin D3) 125 125 mcg PO DAILY 03/19/23 Unknown History mcg (5,000 unit) tablet (Vitamin D3) metoprolol succinate 25 mg 12.5 mg PO QHS 03/19/23 02/08/25 22:00 History tablet,extended release 24 hr ctocqisg-lfc-qjlln ac 400 1 tab PO QHS 03/19/23 Unknown History mcg-calcium carb 500 mg-vit K1 20 mcg tablet (Women's 50 Plus Daily Formula) tamoxifen 20 mg tablet 20 mg PO DAILY 03/19/23 02/09/25 History famotidine 20 mg tablet 20 mg PO BID 01/06/25 Unknown History gabapentin 600 mg tablet 600 mg PO TID 01/06/25 Unknown History hydrochlorothiazide 12.5 mg tablet 12.5 mg PO DAILY 01/06/25 Unknown History vonoprazan 20 mg tablet (Voquezna) 20 mg PO DAILY GERD 01/06/25 02/09/25 History MAGIC MOUTH WASH (BMX) 180 mL 10 ml PO BID PRN reflux with 02/23/25 Unknown Rx suspension epigastric pain #180 mL Allergy/AdvReac Type Severity Reaction Status Date / Time methylprednisolone AdvReac Intermediate Rash Verified 03/02/25 10:12 Surgical History History of esophagogastroduodenoscopy (EGD) Hx of colonoscopy History of Hx laparoscopic cholecystectomy Hx of total knee arthroplasty Hx of hand surgery History of lumpectomy History of hand surgery H/O: hysterectomy Social History Smoking Status: Never smoker alcohol intake: never substance use type: does not use Review of Systems (Anesthesia) ROS Narrative System reviewed and no additional complaints, except as documented.
[2025-03-03 10:49] VITALS: BP 127/63; PULSE 68; RESP 16; TEMP 37.6; O2SAT 99; BMI 41.0
[2025-03-03] MEDS: Lactated Ringers 1,000 ML 15 ML IV (11:03)
[2025-03-03 11:30] LABS: Bedside Glucose 91 mg/dL (74-106)
--- NOTE | 2025-03-03 11:30 | EGD_PTH ---
PATIENT: CALI GUERRA LOC: [facility] U#:[id number] AGE/SX: 64/F ROOM: RE03/03/[address]: Dr. Shemar Castillo DO : 1960 BED: DIS: 03/03/2025 SPEC #: [id number] RECD: 03/03/25 13:12 STATUS: LEONILA SHERWIN #: [id number] POPPY: 03/03/25 11:[address]: Shemar Castillo DEPT: SURGICAL PATHOLOGY RECD BY: Alexander Mariano ENTERED: 03/03/25 13:19 SP TYPE: EGD BIOPSY JB DR: Dr. Dallin Ashton MD Tissues: A - Esophagus, NOS B - Esophagus, NOS C - Gastric mucous membrane Procedures: Surgery Specimen Level IV HEADER OPERATION: EGD PRE-OP DIAGNOSIS: Heartburn, esophageal stricture, diarrhea TISSUE SUBMITTED: A- Distal esophagus biopsy, B- Random esophagus biopsy, C- Gastric body biopsy MICROSCOPIC DIAGNOSIS A. Esophagus, distal, biopsy: Benign squamous mucosa. Columnar mucosa with goblet cell metaplasia - see note. Negative for dysplasia. Note: The diagnosis depends on the location of the biopsy and the extent of the mucosal Irregularity. If the biopsy originates from the tubular esophagus and the mucosal irregularity extends at least 1 cm above the top of the gastric folds, this represents Lovett mucosa. If the biopsy originates from the gastric cardia and/or the mucosal irregularity is less than 1 cm in extent, this represents intestinal metaplasia. B. Esophagus, random, biopsy: Squamous mucosa with reactive changes. Columnar mucosa with goblet cell metaplasia - see note. Note: The diagnosis depends on the location of the biopsy and the extent of the mucosal irregularity. If the biopsy originates from the tubular esophagus and the mucosal irregularity extends at least 1 cm above the top of the gastric folds, this represents Lovett mucosa. If the biopsy originates from the gastric cardia and/or the mucosal irregularity is less than 1 cm in extent, this represents intestinal metaplasia. C. Stomach, gastric body, biopsy: Oxyntic mucosa with no specific pathologic change. Negative for Helicobacter-like organisms (H&E). MICROSCOPIC DESCRIPTION Slides are reviewed. GROSS DESCRIPTION A. Received in formalin in a container labeled with the patient's name, date of , and distal esophagus are 2 montgomery-pink fragments of mucosal tissue measuring 0.4 x 0.2 x 0.2 cm and 0.7 x 0.2 x 0.2 cm. Submitted in toto in A1. B. Received in formalin in a container labeled with the patient's name, date of , and random esophagus are multiple montgomery-pink fragments of mucosal tissue measuring 0.8 x 0.6 x 0.2 cm in aggregate. Submitted in toto in B1. C. Received in formalin in a container labeled with the patient's name, date of , and gastric body are 2 montgomery-pink fragments of mucosal tissue measuring 0.3 x 0.2 x 0.2 cm and 0.5 x 0.3 x 0.2 cm. Submitted in toto in C1. [facility] 03-03-2025 CPT:[id number]
--- NOTE | 2025-03-03 11:45 | HP.PCM_ITS ---
[facility] - General General Date of Admission: 03/03/25 Date of Service: 03/03/25 Chief Complaint: Dysphagia HPI Narrative CALI GUERRA, is a 64 F who presents today for the evaluation of esophageal dysphagia. She has a past medical history of chronic esophageal stricture heartburn, reflux, and diarrhea. She is requesting to transfer care from [facility] to be seen closer to home. She is in remission from breast CA. She states that she's dealing with the narrowing of her throat, the heartburn needs addressed sooner than later. She reports not eating at all, or severely restricting the type of foods she eats in order to avoid the burning sensation that's associated. She has eliminated chocolates, red sauces, eating late, fatty, and greasy foods. She states that plain potatoes are starting to bother her now. She reports having a history of H.pylori infection years ago. She states that she recently had a cystoscopy and 3 days of cephalexin treatment. She is taking vonoprazan 20mg daily, has had her gallbladder removed in 1999 for not working well and being gunked up. She denies ever having had diarrhea from the cholecystectomy, reports BMs now are daily without straining and complete. She has had a normal 4hr GET and previous normal EGDs in 2016 and 2021. Recently had a swallow study showing esophageal stricture, but is managing that well right now. She denies difficulty chewing, cough, throat clearing, sinus drainage, emesis, abdominal cramping, constipation, hematochezia, and melena. She does have a decent amount of abdominal bloating. [facility]LY [facility] Medical History Depression Shortness of breath on exertion Leg cramps History of pain when walking History of edema Wears glasses Post-menopausal Cancer High cholesterol Migraine headache Bulging discs Difficulty swallowing History of hiatal hernia GERD (gastroesophageal reflux disease) Non-smoker History of echocardiogram History of stress test Cardiology follow-up encounter SVT (supraventricular tachycardia) Spinal stenosis Vertigo Arthritis Hypertension Diabetes Home Medications ?Medication ?Instructions ?Recorded ?Last Taken ?Type baclofen 10 mg tablet 10 mg PO TID PRN Muscle Spas m 06/14/20 Unknown History lisinopril 40 mg tablet 40 mg PO DAILY 06/14/2007/13 History metformin 500 mg tablet 500 mg PO DAILY 06/14/20 History diltiazem HCl 180 mg 180 mg PO DAILY 07/03/20 History capsule,extended release 24 hr aspirin 81 mg capsule 81 mg PO DAILY 03/19/2301/11 History cholecalciferol (vitamin D3) 125 125 mcg PO DAILY 06/03 Unknown History mcg (5,000 unit) tablet (Vitamin D3) metoprolol succinate 25 mg 12.5 mg PO QHS 03/19/23 22:00 History tablet,extended release 24 hr [id number]-[id number] ac 400 1 tab PO QHS 03/19/23 Unknow n History mcg-calcium carb 500 mg-vit K1 20 mcg tablet (Women's 50 Plus Daily Formula) tamoxifen 20 mg tablet 20 mg PO DAILY 03/19/2311/05 History famotidine 20 mg tablet 20 mg PO BID 01/06/25 Unknow n History gabapentin 600 mg tablet 600 mg PO TID 01/06/2503/03 History hydrochlorothiazide 12.5 mg tablet 12.5 mg PO DAILY Unknown History vonoprazan 20 mg tablet (Voquezna) 20 mg PO DAILY GERD 01/06/25 02/09/25 History MAGIC MOUTH WASH (BMX) 180 mL 10 ml PO BID PRN reflux with 02/23/25 Unknown Rx suspension epigastric pain #180 mL Allergy/AdvReac Type Severity Reaction Status Date / Time methylprednisolone AdvReac Intermediate Rash Verified 03/03/25 10:45 Surgical History History of esophagogastroduodenoscopy (EGD) Hx of colonoscopy History of Hx laparoscopic cholecystectomy Hx of total knee arthroplasty Hx of hand surgery History of lumpectomy History of hand surgery H/O: hysterectomy Social History Smoking Status: Never smoker alcohol intake: never substance use type: does not use ROS Constitutional Constitutional: Denies fatigue, fever(s), poor appetite, weight gain or weight loss Gastrointestinal Gastrointestinal: Denies belching, bloating, change in bowel habits, change in stool character, chewing difficulty, coffee ground emesis, constipation, cramping, diarrhea, dyspepsia, dysphagia, early satiety, excessive flatus, fecal incontinence, heartburn, hematemesis, hematochezia, hemorrhoids, loose stools, melena, nausea, odynophagia, rectal bleeding, tenesmus, vomiting or weight changes Vital Signs Vital Signs Vital Signs: 03/03/25 10:49 03/03/25 10:49 Temperature 99.6 F H Temperature Source Temporal Pulse Rate 68 Respiratory Rate 16 Respiratory Pattern Normal Blood Pressure 127/63 H Blood Pressure Mean 84 Blood Pressure Source Monitor Blood Pressure Position Sitting Blood Pressure Location Left Arm Pulse Ox 99 Oxygen Delivery Method Room Air Weight Weight: 224 lb 3.362 oz Body Mass Index (BMI) 41.0 Physical Exam Const alert, oriented x3, no apparent distress and healthy appearing General Appearance: cooperative GI normal to inspection, nondistended, normoactive bowel sounds, soft to palpation, non-tender and non-distended Percussion: normal to percussion Rectal Exam: deferred Results Lab / Micro Data Labs: Laboratory Results - last 24 hr 03/03/25 11:12: POC Glucose 91 Assessment & Plan Assessment/Plan (1) Esophageal stricture: PLAN: Assessment and Plan Assessment and Plan (1) Heartburn: Status: Chronic (2) Esophageal stricture: Status: Chronic (3) Diarrhea: Status: Acute Qualifiers: Diarrhea type: unspecified type Qualified Code(s): R19.7 - Diarrhea, unspecified Medications: New cholestyramine-aspartame 4 gram (Cholestyramine Light) administer w/meal; avoid other meds within 1hr before or 4-6hr after dose 4 grams PO QDAY 201.6 grams 0RF Discontinued cephalexin Discontinued Reason: Order Completed 500 mg PO Q12 3 days 6 CAPSULES 0RF post-operative Plan CALI GUERRA, is a 64 F who presents to the office today for establishment with [facility] for chronic esophageal stricture heartburn, reflux, and diarrhea. Differential diagnoses include: bile reflux gastritis, PUD, H.pylori infection. Discussed care plan with her. * cholestyramine PO daily for bile reflux gastritis, STOP if no BM more than 2 days * schedule EGD w/dilation, place on cancellation list for earlier call-up * consider H.pylori tx regimen * office FU 1mo
[2025-03-03 12:15] VITALS: BP 116/57; BP 127/63; PULSE 68; RESP 16; TEMP 36.6; O2SAT 100
--- NOTE | 2025-03-03 12:17 | PCM.POST.ANE ---
Anesthesia: Postop Eval I Current Vital Signs Temperature: 98 F Pulse Rate: 64 Blood Pressure: 116/57 Respiratory Rate: 16 Pulse Ox: 96 Oxygen Delivery Method: Room Air Assessment Airway patent: Yes Spontaneous unlabored respirations: Yes Mental status: Awake and Calm nausea: No Vomiting: No Anesthesia Complication: No Fluid Hydration Crystalloid volume administer (ml): 300 Total IV fluid infused: 300 Progress Note Anesthesia document: Postop Eval 1 completed: Yes
[2025-03-03 12:18] VITALS: BP 116/57; PULSE 64; RESP 16; TEMP 36.6; O2SAT 96
[2025-03-03 12:20] VITALS: BP 106/63; BP 127/63; PULSE 58; RESP 16; O2SAT 100
[2025-03-03 12:25] VITALS: BP 108/62; BP 127/63; PULSE 60; RESP 16; TEMP 37.1; O2SAT 100
--- NOTE | 2025-03-03 12:35 | OP.CCLET_ITS ---
03/03/2025 Dallin Ashton Re : Upper GI endoscopy procedure for Leelee Briseno Deadot Ashton This procedure was performed on Monday, March 03, 2025. My impressions and recommendations are as follows: Impressions : - Z-line irregular, 39 cm from the incisors. Biopsied. - No gross lesions in the entire esophagus. - Benign-appearing esophageal stenosis. Dilated. - Erosive gastropathy with no stigmata of recent bleeding. Biopsied. - No gross lesions in the entire examined duodenum. - Biopsies were taken with a cold forceps for evaluation of eosinophilic esophagitis. Recommendations : - Discharge patient to home. - Resume previous diet. - Continue present medications. - Await pathology results. My findings are described in the full procedure note, which is enclosed. If I can be of further assistance, please feel free to contact me at . Sincerely, Shemar Castillo, 03/03/2025 12:34:35 PM This report has been signed electronically.
--- NOTE | 2025-03-03 12:35 | OP.EGD_ITS ---
Patient Name: Leelee Briseno Procedure Date: 03/03/2025 11:38 AM Date of : 1960 Age: 64 Procedure: Upper GI endoscopy Indications: Dysphagia, Heartburn, Esophageal reflux, Failure to respond to medical treatment Providers: Shemar Castillo DO Referring MD: Dallin Ashton Medicines: Monitored Anesthesia Care Patient Profile: This is a 64 year old female. Refer to note in patient chart for documentation of history and physical. Patient has symptoms of chronic dysphagia, dysphagia with solids, chronic heartburn and chronic nausea. Complications: No immediate complications. Procedure: Pre-Anesthesia Assessment: - Prior to the procedure, a History and Physical was performed, and patient medications and allergies were reviewed. The patient is competent. The risks and benefits of the procedure and the sedation options and risks were discussed with the patient. All questions were answered and informed consent was obtained. Patient identification and proposed procedure were verified by the physician in the pre-procedure area. Mental Status Examination: alert and oriented. Airway Examination: normal oropharyngeal airway and neck mobility. Respiratory Examination: clear to auscultation. CV Examination: normal. Prophylactic Antibiotics: The patient does not require prophylactic antibiotics. Prior Anticoagulants: The patient has taken no anticoagulant or antiplatelet agents except for NSAID medication. ASA Grade Assessment: II - A patient with mild systemic disease. After reviewing the risks and benefits, the patient was deemed in satisfactory condition to undergo the procedure. The anesthesia plan was to use monitored anesthesia care (MAC). Immediately prior to administration of medications, the patient was re-assessed for adequacy to receive sedatives. The heart rate, respiratory rate, oxygen saturations, blood pressure, adequacy of pulmonary ventilation, and response to care were monitored throughout the procedure. The physical status of the patient was re-assessed after the procedure. After obtaining informed consent, the endoscope was passed under direct vision. Throughout the procedure, the patient's blood pressure, pulse, and oxygen saturations were monitored continuously. The gastroscope was introduced through the mouth, and advanced to the second part of duodenum. The upper GI endoscopy was accomplished without difficulty. The patient tolerated the procedure well. Scope In: 12:03:46 PM Scope Out: 12:09:47 PM Total Procedure Duration Time 0 hours 6 minutes 1 second Findings: The Z-line was irregular and was found 39 cm from the incisors. Biopsies were taken with a cold forceps for histology. Verification of patient identification for the specimen was done. Estimated blood loss was minimal. No gross lesions were noted in the entire esophagus. Biopsies were obtained from the proximal and distal esophagus with cold forceps for histology of suspected eosinophilic esophagitis. One benign-appearing, intrinsic moderate (circumferential scarring or stenosis; an endoscope may pass) stenosis was found 37 to 39 cm from the incisors. This stenosis measured 4 cm (in length). The stenosis was traversed. A guidewire was placed and the scope was withdrawn. Dilation was performed with a Savary dilator with no resistance at 57 Fr. The dilation site was examined and showed moderate improvement in luminal narrowing. Estimated blood loss was minimal. A few localized 5 mm erosions with no stigmata of recent bleeding were found in the gastric body. Biopsies were taken with a cold forceps for histology. Verification of patient identification for the specimen was done. Biopsies were taken with a cold forceps for Helicobacter pylori testing. Verification of patient identification for the specimen was done. Estimated blood loss was minimal. No gross lesions were noted in the entire examined duodenum. Impression: - Z-line irregular, 39 cm from the incisors. Biopsied. - No gross lesions in the entire esophagus. - Benign-appearing esophageal stenosis. Dilated. - Erosive gastropathy with no stigmata of recent bleeding. Biopsied. - No gross lesions in the entire examined duodenum. - Biopsies were taken with a cold forceps for evaluation of eosinophilic esophagitis. Recommendation: - Discharge patient to home. - Resume previous diet. - Continue present medications. - Await pathology results. Procedure Code(s): --- Professional --- 92329, Esophagogastroduodenoscopy, flexible, transoral; with insertion of guide wire followed by passage of dilator(s) through esophagus over guide wire 42249, 59,51, Esophagogastroduodenoscopy, flexible, transoral; with biopsy, single or multiple CPT copyright 2021 [employer]. All rights reserved. The codes documented in this report are preliminary and upon well site drilling engineer review may be revised to meet current compliance requirements. Shemar Castillo DO 03/03/2025 12:34:35 PM This report has been signed electronically. Number of Addenda: 0 Note Initiated On: 03/03/2025 11:38 AM
--- NOTE | 2025-03-03 12:55 | POSTOPAN2_ITS ---
Anesthesia Postop Eval I Sum Postop Eval Completion status Anesthesia document: Postop Eval 1 completed: Yes Anesthesia Postop Eval I Summary Anesthesia Postop Eval I Summary: Anesthesia Postop Eval I: Assessment Summary Airway patent Yes 03/03/25 12:18 [email or web address] Spontaneous unlabored Yes 03/03/25 12:18 [email or web address] [email or web address] respirations Mental status Awake,Calm 03/03/25 12:18 [email or web address] [email or web address] nausea No 03/03/25 12:18 [email or web address] Vomiting No 03/03/25 12:18 [email or web address] Anesthesia Postop Eval I: Fluid Summary Crystalloid volume administer 300 03/03/25 12:18 [email or web address] (ml) Colloids volume administered ( ml) Blood Product volume administered (ml) Total IV fluid infused 300 03/03/25 12:18 [email or web address] Anesthesia Postop Eval I: Summary Notes Anesthesia Complication No 03/03/25 12:18 [email or web address] Anesthesia Complication Comment: Post-operative progress note Anesthesia: Postop Eval II Evaluation Mental status: Awake Pain Level: 0 nausea: No Vomiting: No
--- NOTE | 2025-03-03 12:55 | PCM.POSTANE2 ---
Anesthesia Postop Eval I Sum Postop Eval Completion status Anesthesia document: Postop Eval 1 completed: Yes Anesthesia Postop Eval I Summary Anesthesia Postop Eval I Summary: Anesthesia Postop Eval I: Assessment Summary Airway patent Yes 03/03/25 12:18 [email or web address] [email or web address] [email or web address] Spontaneous unlabored Yes 03/03/25 12:18 NETWORK SECURITY [email or web address] respirations Mental status Awake,Calm 03/03/25 12:18 NETWORK [email or web address] [email or web address] nausea No 03/03/25 12:18 NETWORK SECURITY [email or web address] Vomiting No 03/03/25 12:18 NETWORK SECURITY [email or web address] Anesthesia Postop Eval I: Fluid Summary Crystalloid volume administer 300 03/03/25 12:18 NETWORK [email or web address] [email or web address] (ml) Colloids volume administered ( ml) Blood Product volume administered (ml) Total IV fluid infused 300 03/03/25 12:18 NETWORK SECURITY [email or web address] Anesthesia Postop Eval I: Summary Notes Anesthesia Complication No 03/03/25 12:18 NETWORK [email or web address] [email or web address] Anesthesia Complication Comment: Post-operative progress note Anesthesia: Postop Eval II Evaluation Mental status: Awake Pain Level: 0 nausea: No Vomiting: No
== END 2025-03-03 13:05 | disposition home or self-care (01) ==
LOC: EN 10:20 → AC 10:21
PROVIDERS: PCP Family Medicine; Referring Provider Family Medicine; Visit Provider Internal Medicine Gastroenterology
PROC: 0DJ08ZZ Inspection of Upper Intestinal Tract, Via Natural or Artificial Opening Endoscopic (ICD-10-PCS; CPT 43235; principal; 2025-03-03 11:25)
DX: K22.70 Barrett's esophagus without dysplasia (principal); E11.9 Type 2 diabetes mellitus without complications; K22.2 Esophageal obstruction; E78.00 Pure hypercholesterolemia, unspecified; K21.9 Gastro-esophageal reflux disease without esophagitis; Z85.3 Personal history of malignant neoplasm of breast; Z90.49 Acquired absence of other specified parts of digestive tract; I10 Essential (primary) hypertension; R19.7 Diarrhea, unspecified; R12 Heartburn; K25.9 Gastric ulcer, unspecified as acute or chronic, without hemorrhage or perforation
CPT/HCPCS: 43239; 43248; 82962; 88305; C1769

== ENCOUNTER → 2025-06-13 | Outpatient (CLI) | payer MEDICARE, MEDICAID, SELFPAY ==
[2025-06-13 11:24] LABS: Anion Gap 12 (5-15); BUN 14 mg/dL (4-19); BUN/Creat Ratio 15.4 RATIO (10-20); Calcium,Total 9.7 mg/dL (7.6-11.0); Carbon Dioxide 25.7 mmol/L (21.0-32.0); Chloride 102 mmol/L (98-108); Glucose 115 mg/dL (70-99); Potassium 3.9 mmol/L (3.3-5.1)
== END | disposition home or self-care (01) ==
LOC: MTLAB 08:40
PROVIDERS: PCP Family Medicine; Referring Provider Urology; Visit Provider Urology
DX: R31.9 Hematuria, unspecified (principal); R10.9 Unspecified abdominal pain
CPT/HCPCS: 36415; 80048

== ENCOUNTER → 2025-07-13 | Outpatient (CLI) | payer MEDICARE, MEDICAID, SELFPAY ==
--- NOTE | 2025-07-13 16:20 | CT_ITS ---
PROCEDURE: CT ABD/PELVIS W/WO CONTRAST 07/13/2025 REASON FOR EXAM: R FLANK PAIN/HEMATURIA. History of breast cancer and esophageal cancer. UTI. TECHNIQUE: Procedure Code: [id number] Modality: CT Procedure: CT ABD/PELVIS W/WO CONTRAST Coronal and Sagittal reconstruction series were provided. CONTRAST: Isovue 370 VOLUME: 95 mL One or more dose reduction techniques were used (e.g., Automated exposure control, adjustment of the mA and/or kV according to patient size, use of iterative reconstruction technique. RADIATION DOSE SUMMARY: CTDlvol: 31.2 mGy DLP: 4470.74 mGycm COMPARISON: Prior study dated June 21, 2021. FINDINGS: Lung bases: The lung bases are clear. Coronary artery calcification. Liver: Diffuse fatty infiltration. Gallbladder: Surgically absent. Spleen: 8.8 mm cyst in the anterior superior pole of the spleen. This has decreased in size as compared to prior study. Pancreas: Normal size without evidence of mass surrounding inflammation or ductal dilation. Adrenals: Unremarkable Kidneys: Normal renal sizes. No hydronephrosis. 1 cm cyst in the anterior midpole of the right kidney. Bladder: Unremarkable Reproductive Organs: Prior hysterectomy. Adnexal regions are unremarkable. Bowel: Colonic diverticulosis without diverticulitis. Appendix: The appendix is not identified. There is no inflammatory process identified in the right lower quadrant to suggest appendicitis. Lymph nodes: Unremarkable. Vasculature: Mild diffuse atherosclerotic calcifications are noted. Peritoneum / Retroperitoneum: Unremarkable Bones: Degenerative changes of the spine. CT/CT Abd/Pelvis W/WO Contrast IMPRESSION: Fatty infiltration of the liver. Status post cholecystectomy. Small residual cyst in the anterior superior aspect of the spleen. This has de creased in size as compared to prior study. Reading Location: [id number]
== END | disposition home or self-care (01) ==
LOC: CT 16:07
PROVIDERS: PCP Family Medicine; Referring Provider Urology; Visit Provider Urology
DX: R10.A1 Flank pain, right side (principal); R31.9 Hematuria, unspecified
CPT/HCPCS: 74178; Q9967